=== PATIENT | male | born 1965 | race Caucasian/White ===

== ENCOUNTER 2017-11-09 10:17 | Emergency (ER) | payer BC, OTHER ==
[~2017-11-09] VITALS: Ht 185.4 cm; Wt 97.5 kg
--- OUTSIDE RECORDS SUMMARY | 2017-11-09 10:22 | XMS REPORT | CCD ---
Author Author MARIELA HART Organization Unknown Address [address] [place] [address] Care Team Providers Care Pediatric Hospitalist Name Role Phone JAIMEHENRY RASHARD STEWART Attphys Allergies Allergy Code Allergy Type Reaction Status No Known Drug Allergies 0 Drug allergy Active Active Medications Unknown or Not Available. Problems Unknown or Not Available. Procedures Procedure Code Procedure Type Date Colorectal cancer screening; colonoscopy on individual not meeting criteri G0121 CPT 09/23/2016 Results Unknown or Not Available. Function Status Unknown or Not Available. History of Immunizations Unknown or Not Available. Plan of Treatment Unknown or Not Available. Social History Smoking Status Code Start Date End Date Never smoker [id number] Vital Signs Vital Sign Value Unit Date/Time Recent/Initial? BMI (Body Mass Index) 28.37 kg/m2 09/20/2016 11:03 Initial VS Weight Measured 215 [lb_av] 09/20/2016 11:03 Initial VS Height 73 [in_i] 09/20/2016 11:03 Initial VS BSA (Body Surface Area) 2.24 m2 09/20/2016 11:03 Initial VS Function Status Unknown or Not Available. Goals Unknown or Not Available. ASSESSMENTS Unknown or Not Available. Health Concerns Section Unknown or Not Available.
--- OUTSIDE RECORDS SUMMARY | 2017-11-09 10:23 | XMS REPORT ---
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 Name Role Phone Lizzie Dejesus PCP Unavailable Lizzie Dejesus PreferredProvider Unavailable Allergies and Adverse Reactions Name Reaction Notes NO KNOWN DRUG ALLERGIES Plan of Treatment Planned Activity Comments Planned Date Planned Time Plan/Goal Lipid Profile 10/10/2011 12:00 AM Screening colonoscopy appt on 06/18/16 @330pm Medications Active Name Start Date Estimated Completion Date SIG Comments desoximetasone 0.25 % topical cream 11/30/2014 apply a thin layer to the affected area(s) by topical route 2 times per day ; rub in gently and completely desoximetasone 0.25 % topical cream 10/09/2015 APPLY A THIN LAYER TO THE AFFECTED AREA(S) BY TOPICAL ROUTE 2 TIMES PER DAY ; RUB IN GENTLY AND COMPLETELY Lipitor 40 mg oral tablet 04/01/2016 05/31/2016 take 1 tablet (40 mg) by oral route once daily at bedtime for 30 days phentermine 37.5 mg oral tablet 05/09/2016 take 1 tablet (37.5 mg) by oral route once daily before breakfast Name Start Date Expiration Date SIG Comments diethylpropion 75 mg oral tablet extended release 12/15/2009 01/14/2010 take 1 tablet (75 mg) by oral route once daily , in midmorning for 30 days Zithromax Z-Singh 250 mg oral tablet 03/23/2010 03/28/2010 take 2 tablets (500 mg) by oral route once daily for 1 day then 1 tablet (250 mg) by oral route once daily for 4 days amoxicillin 500 mg oral tablet 03/26/2010 04/05/2010 take 1 tablet (500 mg) by oral route 3 times a day for 10 days Zithromax Z-Singh 250 mg oral tablet 04/30/2010 05/05/2010 take 2 tablets (500 mg ) by oral route once daily for 1 day then 1 tablet (250 mg) by oral route once daily for 4 days Lexapro 10 mg oral tablet 05/22/2010 08/20/2010 take 1 tablet (10 mg) by oral route once daily for 30 days Zithromax Z-Singh 250 mg oral tablet 06/16/2012 06/21/2012 take 2 tablets (500 mg) by oral route once daily for 1 day then 1 tablet (250 mg) by oral route once daily for 4 days Flexeril as directed tablet 10 mg 10/13/2012 11/12/2012 Take 1 tablet by as directed route once a day as directed for 30 days Zithromax Z-Singh 250 mg oral tablet 03/26/2013 03/31/2013 take 2 tablets (500 mg) by oral route once daily for 1 day then 1 tablet (250 mg) by oral route once daily for 4 days Augmentin 875-125 mg oral tablet 05/11/2013 05/18/2013 take 1 tablet by oral route every 12 hours for 7 days Zithromax Z-Singh 250 mg oral tablet 07/29/2014 08/03/2014 take 2 tablets (500 mg ) by oral route once daily for 1 day then 1 tablet (250 mg) by oral route once daily for 4 days Zithromax Z-Singh 250 mg oral tablet 01/30/2015 02/04/2015 take 2 tablets (500 mg) by oral route once daily for 1 day then 1 tablet (250 mg) by oral route once daily for 4 days Discontinued Name Start Date Discontinued Date SIG Comments Ventolin HFA 90 mcg/actuation inhalation HFA aerosol inhaler 03/26/20102011 Inhale 1-2 puff (90 mcg/Actuation) by inhalation route every four to six hours as needed Flexeril 10 mg oral tablet 10/13/2012 10/13/2012 take 1 tablet by mouth daily at HS deleted Nasonex 50 mcg/actuation nasal spray,non-aerosol 03/26/2013 05/11/2013 spray 2 sprays in each nostril by intranasal route once daily promethazine-codeine 6.25-10 mg/5 mL oral syrup 05/11/2013 10/19/2013 take 5 milliliters by oral route every 4-6 hours as needed, not to exceed 30 mL in 24 hours desoximetasone 0.25 % topical cream 10/20/2013 10/06/2014 apply a thin layer to the affected area(s) by topical route 2 times per day ; rub in gently and completely Medrol (Singh) 4 mg oral tablets,dose pack 04/27/2015 03/11/2016 take as directed desoximetasone 0.25 % topical cream 02/28/2016 03/11/2016 APPLY A THIN LAYER TO THE AFFECTED AREA(S) BY TOPICAL ROUTE 2 TIMES PER DAY ; RUB IN GENTLY AND COMPLETELY Problem List Not available. Vital Signs Date Time BP-Sys(mm[Hg] BP-Grecia(mm[Hg]) HR(bpm) RR(rpm) Temp WT HT HC BMI BSA BMI Percentile O2 Sat(%) 05/09/2016 8:18:00 AM 126 mmHg 70 mmHg 93 bpm 18 rpm 96.8 F 218.375 lbs 73 in 28.81 kg/m2 2.26 m2 98 % 04/09/2016 8:01:00 AM 126 mmHg 74 mmHg 99 bpm 18 rpm 97.6 F 227 lbs 73 in 29.9487 kg/m 2.3029 m 97 % 03/11/2016 8:00:00 AM 132 mmHg 74 mmHg 73 bpm 18 rpm 96.8 F 246.5 lbs 73 in 32.52 kg/m2 2.40 m2 98 % 10/06/2014 8:39:00 AM 126 mmHg 64 mmHg 77 bpm 18 rpm 97.1 F 239.375 lbs 73 in 31.5814 kg/m 2.3648 m 97 % 05/11/2013 3:20:00 PM 124 mmHg 68 mmHg 77 bpm 18 rpm 98.7 F 219.25 lbs 73 in 28.93 kg/m2 2.26 m2 96 % 01/25/2013 3:41:00 PM 122 mmHg 66 mmHg 76 bpm 18 rpm 229 lbs 73 in 30.2126 kg/m 2.313 m 97 % 10/13/2012 11:18:00 AM 118 mmHg 62 mmHg 64 bpm 18 rpm 96.4 F 228.25 lbs 73 in 30.11 kg/m2 2.31 m2 04/28/2012 3:45:00 PM 134 mmHg 72 mmHg 68 bpm 18 rpm 97 F 237.375 lbs 73 in 31.3175 kg/m 2.3549 m 10/08/2011 9:30:00 AM 124 mmHg 62 mmHg 64 bpm 18 rpm 97.1 F 225.125 lbs 73 in 29.70 kg/m2 2.29 m2 03/26/2010 9:44:00 AM 112 mmHg 74 mmHg 84 bpm 16 rpm 98 F 220.125 lbs 03/23/2010 10:53:00 AM 126 mmHg 72 mmHg 72 bpm 16 rpm 97.5 F 226.125 lbs 01/16/2010 2:43:00 PM 138 mmHg 80 mmHg 72 bpm 16 rpm 97.2 F 215 lbs 12/15/2009 2:54:00 PM 130 mmHg 78 mmHg 72 bpm 16 rpm 97.8 F 215.5 lbs 11/15/2009 12:04:00 PM 122 mmHg 78 mmHg 64 bpm 16 rpm 97.9 F 221 lbs 06/08/2009 8:10:00 AM 120 mmHg 74 mmHg 64 bpm 16 rpm 97.4 F 211.5 lbs 73 in 27.90 kg/m2 2.22 m2 05/04/2009 8:02:00 AM 112 mmHg 74 mmHg 72 bpm 16 rpm 98.2 F 210.375 lbs 73 in 27.7554 kg/m 2.217 m 04/06/2009 2:13:00 PM 126 mmHg 76 mmHg 68 bpm 16 rpm 97.2 F 212.25 lbs 73 in 28.00 kg/m2 2.23 m2 03/08/2009 11:39:00 AM 120 mmHg 78 mmHg 68 bpm 16 rpm 97.8 F 222.375 lbs 73 in 29.3385 kg/m 2.2793 m 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# [address]-87 Reviewed 04/28/2012 12:00 AM Depo-Medrol, Per [address] [facility]#3562-5033-11 Reviewed 10/14/2012 12:00 AM X-RAY EXAM OF NECK Reviewed 10/22/2012 12:[address] SFT TSUE NCK W/O & W/DYE Reviewed 01/25/2013 12:00 AM THER/PROPH/DIAG INJ SC/IM Reviewed 01/25/2013 12:00 AM Decadron, Per 1 Mg [facility]# [address]-38 Reviewed 01/25/2013 12:00 AM Depo-Medrol, Per 80 Mg NDC#3973-6059-56 Reviewed 05/11/2013 12:00 AM THER/PROPH/DIAG INJ SC/IM Reviewed 05/11/2013 12:00 AM Decadron, Per 1 Mg [facility]# [address]-04 Reviewed 05/11/2013 12:00 AM Depo-Medrol, Per 80 Mg N[facility]#1801-9955-39 Reviewed 10/06/2014 12:00 AM COMPLETE CBC W/AUTO DIFF WBC Reviewed 10/06/2014 12:00 AM ASSAY OF PSA TOTAL Reviewed Results Summary Data and Description Results 10/06/2014 9:10 AM WBC 5.4 RBC 5.15 HGB 15.90 g/dLHCT 45.90 %MCV 89.0 fLMCH 30.90 pgMCHC 34.60 g/dLRDW SD 41 RDW CV 12.70 %MPV 9.60 fLPLT 194 NRBC# 0.00 NRBC% 0.0 %NEUT 51.80 %%LYMP 33.50 %%MONO 8.50 %%EOS 5.30 %%BASO 0.90 %#NEUT 2.81 #LYMP 1.82 #MONO 0.46 #EOS 0.29 #BASO 0.05 MANUAL DIFF NOT IND PSA TOTAL 0.690 ng/mL 03/31/2016 8:05 AM PSA TOTAL 0.550 ng/mLTRIGLYCERIDES 111.0 mg/dLCHOLESTEROL 282.0 mg/dLHDL 44.0 mg/dLTOT CHOL/HDL 6.4 LDL (CALC) 216.0 mg/dLGLUCOSE 93.0 mg/ dLSODIUM 138.0 mmol/LPOTASSIUM 4.60 mmol/LCHLORIDE 104.0 mmol/LCO2 24.0 mmol/ LBUN 19.0 mg/dLCREATININE 1.40 mg/dLSGOT/AST 23.0 IU/LSGPT/ALT 22.0 IU/LALK PHOS 63.0 IU/LTOTAL PROTEIN 7.40 g/dLALBUMIN 4.60 g/dLTOTAL BILI 1.0 mg/ dLCALCIUM 9.80 mg/dLAGE 51 GFR NonAA 53 GFR AA 64 eGFR 53 eGFR AA* >60 WBC 5.7 RBC 5.28 HGB 15.60 g/dLHCT 46.90 %MCV 89.0 fLMCH 29.50 pgMCHC 33.30 g/dLRDW SD 40 RDW CV 12.20 %MPV 9.50 fLPLT 218 NRBC# 0.00 NRBC% 0.0 %NEUT 47.20 %%LYMP 37.50 %%MONO 8.10 %%EOS 5.60 %%BASO 1.40 %#NEUT 2.68 #LYMP 2.13 #MONO 0.46 #EOS 0.32 #BASO 0.08 MANUAL DIFF NOT IND History Of Immunizations Name Date Admin Mfg Name Mfg Code Trade Name Lot# Route Inj Vis Given Vis Pub CVX Influenza 12/26/2015 sanofi pasteur PMC Fluzone Quadrivalent [id number] Intramuscular Left Deltoid 12/26/2015 10/07/2014 141 History of Past Illness Name Date of Onset Comments Weight Loss Mar 08 2009 11:42AM Weight Loss Apr 06 2009 2:15PM Weight Loss May 04 2009 8:04AM Weight Loss Jun 08 2009 8:13AM *No known medical problems Dietary Counseling Nov 15 2009 12:08PM Exercise Counseling Nov 15 2009 12:08PM Weight Gain, Abnormal Nov 15 2009 12:08PM Dietary Counseling Dec 15 2009 2:54PM Exercise Counseling Dec 15 2009 2:54PM Dietary Counseling Jan 16 2010 2:46PM Exercise Counseling Jan 16 2010 2:46PM Pharyngitis, Acute Mar 23 2010 10:53AM Upper Respiratory Infection Mar 26 2010 9:43AM Bronchitis, Acute Mar 26 2010 9:43AM Skin Neoplasm Oct 08 2011 9:32AM Coronary Artery Disease Oct 10 2011 1:30PM Upper Respiratory Infections Apr 28 2012 3:47PM Neck Pain Oct 13 2012 11:20AM Neck Pain Oct 14 2012 2:36PM Lymph Nodes, Enlarged, neck Oct 22 2012 1:44PM Rhinitis, Allergic Jan 25 2013 3:43PM Upper Respiratory Infections May 11 2013 3:22PM Fatigue Oct 06 2014 8:41AM Screening for prostate cancer Oct 06 2014 8:41AM Skin lesion Oct 06 2014 8:41AM General medical examination Oct 06 2014 8:41AM Need for influenza vaccination Dec 26 2015 8:59AM Screening for ischemic heart disease Mar 11 2016 8:02AM Family history of hypertension Mar 11 2016 8:02AM BMI 32.0-32.9,adult Mar 11 2016 8:02AM Other eczema Mar 11 2016 8:02AM Seborrheic keratoses Mar 11 2016 8:02AM Overweight Apr 09 2016 8:02AM Mixed hyperlipidemia Apr 09 2016 8:02AM BMI 28.0-28.9,adult May 09 2016 8:20AM Screening for colon cancer May 09 2016 8:20AM Payers Insurance Name Company Name Plan Name Plan Number Policy Number Policy Group Number Start Date BCBS [facility] [id number] Saturday, 2011 History of Encounters Visit Date Visit Type Provider 05/09/2016 Office visit Lizzie Dejesus APRN 04/09/2016 Office visit Lizzie Dejesus APRN 03/11/2016 Office visit Lizzie Dejesus APRN 12/26/2015 Nurse visit Lizzie Dejesus APRN 10/06/2014 Office visit Lizzie Dejesus APRN 05/11/2013 Office visit Lizzie Dejesus APRN 01/25/2013 Office visit Lizzie Dejesus APRN 10/13/2012 Office visit Lizzie Dejesus APRN 04/28/2012 Office visit Lizzie Dejesus APRN 10/08/2011 Office visit Lizzie Dejesus APRN 03/26/2010 Office visit Jeane TINOCO 03/23/2010 Office visit Jeane TINOCO 01/16/2010 Office visit Jeane TINOCO 12/15/2009 Office visit Jeane TINOCO 11/15/2009 Office visit Jeane TINOCO 06/08/2009 Office visit Jeane TINOCO 05/04/2009 Office visit Jeane TINOCO 04/06/2009 Office visit Jeane TINOCO 03/08/2009 Office visit Jeane TINOCO
--- OUTSIDE RECORDS SUMMARY | 2017-11-09 10:23 | XMS REPORT ---
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 Name Role Phone Lizzie Dejesus PCP Unavailable Allergies and Adverse Reactions Name Reaction Notes NO KNOWN DRUG ALLERGIES Plan of Treatment Planned Activity Comments Planned Date Planned Time Plan/Goal LIPID PANEL 10/10/2011 12:00 AM Medications Active Name Start Date Estimated Completion Date SIG Comments desoximetasone 0.25 % topical cream 11/30/2014 apply a thin layer to the affected area(s) by topical route 2 times per day ; rub in gently and completely Medrol (Singh) 4 mg oral tablets,dose pack 04/27/2015 take as directed Name Start Date Expiration Date SIG Comments [...] day ; rub in gently and completely Problem List Not available. Vital Signs Date Time BP-Sys(mm[Hg] BP-Grecia(mm[Hg]) HR(bpm) RR(rpm) Temp WT HT HC BMI BSA BMI Percentile O2 Sat(%) 10/06/2014 8:39:00 AM 126 mmHg 64 mmHg 77 bpm 18 rpm 97.1 F 239.375 lbs 73 in 31.58 kg/m2 2.36 m2 97 % 05/11/2013 3:20:00 PM 124 mmHg 68 mmHg 77 bpm 18 rpm 98.7 F 219.25 lbs 73 in 28.9263 kg/m 2.2632 m 96 % 01/25/2013 3:41:00 PM 122 mmHg 66 mmHg 76 bpm 18 rpm 229 lbs 73 in 30.21 kg/m2 2.31 m2 97 % 10/13/2012 11:18:00 AM 118 mmHg 62 mmHg 64 bpm 18 rpm 96.4 F 228.25 lbs 73 in 30.1136 kg/m 2.3092 m 04/28/2012 3:45:00 PM 134 mmHg 72 mmHg 68 bpm 18 rpm 97 F 237.375 lbs 73 in 31.32 kg/m2 2.35 m2 10/08/2011 9:30:00 AM 124 mmHg 62 mmHg 64 bpm 18 rpm 97.1 F 225.125 lbs 73 in 29.7014 kg/m 2.2934 m 03/26/2010 9:44:00 AM 112 mmHg 74 mmHg [...] rpm 97.4 F 211.5 lbs 73 in 27.9038 kg/m 2.2229 m 05/04/2009 8:02:00 AM 112 mmHg 74 mmHg 72 bpm 16 rpm 98.2 F 210.375 lbs 73 in 27.76 kg/m2 2.22 m2 04/06/2009 2:13:00 PM 126 mmHg 76 mmHg 68 bpm 16 rpm 97.2 F 212.25 lbs 73 in 28.0027 kg/m 2.2268 m 03/08/2009 11:39:00 AM 120 mmHg 78 mmHg 68 bpm 16 rpm 97.8 F 222.375 lbs 73 in 29.34 kg/m2 2.28 m2 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 Date Ordered Description Order Status 04/28/2012 12:00 AM THER/PROPH/DIAG INJ SC/IM Reviewed 04/28/2012 12:00 AM Decadron, Per 1 Mg [facility]# [address]-69 Reviewed 04/28/2012 12:00 AM Depo-Medrol, Per 80 Mg NDC#9518-4374-42 Reviewed 10/14/2012 12:00 AM X-RAY EXAM OF NECK Returned 10/22/2012 12:[address] SFT TSUE NCK W/O & W/DYE Returned 01/25/2013 12:00 AM THER/PROPH/DIAG INJ SC/IM Reviewed 01/25/2013 12:00 AM Decadron, Per 1 Mg [facility]# [address]-98 Reviewed 01/25/2013 12:00 AM Depo-Medrol, Per 80 Mg NDC#4843-3315-74 Reviewed 05/11/2013 12:00 AM THER/PROPH/DIAG INJ SC/IM Reviewed 05/11/2013 12:00 AM Decadron, Per 1 Mg N[facility]# [address]-67 Reviewed 05/11/2013 12:00 AM Depo-Medrol, Per 80 Mg NDC#5486-1941-14 Reviewed 10/06/2014 12:00 AM COMPLETE CBC W/AUTO DIFF WBC Returned 10/06/2014 12:00 AM ASSAY OF PSA TOTAL Returned Results Summary Data and Description Results 10/06/2014 9:10 AM WBC 5.4 RBC 5.15 HGB 15.90 g/dLHCT 45.90 %MCV 89.0 fLMCH 30.90 pgMCHC 34.60 g/dLRDW CV 12.70 %MPV 9.60 fLPLT 194 %NEUT 51.80 %%LYMP 33.50 %%MONO 8.50 %%EOS 5.30 %%BASO 0.90 %#NEUT 2.81 #LYMP 1.82 #MONO 0.46 #EOS 0.29 #BASO 0.05 PSA TOTAL 0.690 ng/mL History Of Immunizations Not available. History of Past Illness Name Date of [...] General medical examination Oct 06 2014 8:41AM Payers Insurance Name Company Name Plan Name Plan Number Policy Number Policy Group Number [facility] Date [id number] Saturday, 2011 History of Encounters Visit Date Visit Type Provider 10/06/2014 Office visit Lizzie Dejesus SUPERINTENDENT ELECTRIC POWER 05/11/2013 Office visit Lizzie Dejesus SUPERINTENDENT ELECTRIC POWER 01/25/2013 Office visit Lizzie Dejesus SUPERINTENDENT ELECTRIC POWER 10/13/2012 Office visit Lizzie Dejesus SUPERINTENDENT ELECTRIC POWER 04/28/2012 Office visit Lizzie Dejesus SUPERINTENDENT ELECTRIC POWER 10/08/2011 Office visit Lizzie Dejesus SUPERINTENDENT ELECTRIC POWER 03/26/2010 Office visit Jeane TINOCO 03/23/2010 Office visit Jeane TINOCO 01/16/2010 Office visit Jeane TINOCO 12/15/2009 Office visit Jeane TINOCO 11/15/2009 Office visit Jeane TINOCO 06/08/2009 Office visit Jeane TINOCO 05/04/2009 Office visit Jeane TINOCO 04/06/2009 Office visit Jeane TINOCO 03/08/2009 Office visit Jeane TINOCO
--- OUTSIDE RECORDS SUMMARY | 2017-11-09 10:24 | XMS REPORT ---
Author Lizzie Dietrich [facility] Address [address] [place], [place] [address] Care Team Providers Care Manager General Name Role Phone Lizzie Dejesus PCP Unavailable Lizzie Dejesus PreferredProvider Unavailable Allergies and Adverse Reactions Name Reaction Notes NO KNOWN DRUG ALLERGIES Plan of Treatment Planned Activity Comments Planned Date Planned Time Plan/Goal COMPREHENSIVE METABOLIC PANEL 06/04/2016 12:00 AM LIPID PANEL 06/04/2016 12:00 AM Lipid Profile 10/10/2011 12:00 AM Screening colonoscopy appt on 06/18/16 @330pm Pt did want to see him wanting to see Dr park pt has appt on 07/23/16 @ 0930 Medications Active Name Start Date Estimated Completion [...] DAY ; RUB IN GENTLY AND COMPLETELY MegaRed Trimble-3 Krill Oil 1,000-230-60 mg oral capsule take 1 capsule by oral route daily One-A-Day Men's Multivitamin 400-300 mcg oral tablet take 1 tablet by oral route daily aspirin 81 mg oral tablet,delayed release (DR/EC) take 1 tablet (81 mg) by oral route once daily Lipitor 40 mg oral tablet 11/05/2016 take 1 tablet (40 mg) by oral route once daily at bedtime Medrol (Singh) 4 mg oral tablets,dose pack 11/12/2016 take as directed Zyrtec-D 5-120 mg oral tablet extended release 12 hr 11/12/2016 take 1 tablet by oral route 2 times per day phentermine 37.5 mg oral tablet 11/12/2016 12/12/2016 take 1 tablet (37.5 mg ) by oral route once daily before breakfast for 30 days Name Start Date Expiration Date SIG Comments [...] oral route once daily for 4 days Lipitor 40 mg oral tablet 04/01/2016 05/31/2016 take 1 tablet (40 mg) by oral route once daily at bedtime for 30 days phentermine 37.5 mg oral tablet 05/09/2016 take 1 tablet (37.5 mg) by oral route once daily before breakfast Discontinued Name Start Date Discontinued Date SIG [...] DAY ; RUB IN GENTLY AND COMPLETELY Suprep Bowel Prep Kit 17.5-3.13-1.6 gram oral recon soln 07/23/2016 11/12/2016 take as directed Problem List Description Status Onset Colon cancer screening Active 07/25/2016 Vital Signs Date Time BP-Sys(mm[Hg] BP-Grecia(mm[Hg]) HR(bpm) RR(rpm) Temp WT HT HC BMI BSA BMI Percentile O2 Sat(%) 11/12/2016 9:00:00 AM 118 mmHg 80 mmHg 90 bpm 18 rpm 96.6 F 210.125 lbs 73 in 27.72 kg/m2 2.22 m2 97 % 10/14/2016 8:18:00 AM 128 mmHg 70 mmHg 74 bpm 18 rpm 97.8 F 221.5 lbs 73 in 29.2231 kg/m 2.2748 m 98 % 07/23/2016 10:01:00 AM 133 mmHg 90 mmHg 68 bpm 18 rpm 97.3 F 215.5 lbs 73 in 28.43 kg/m2 2.24 m2 05/09/2016 8:18:00 AM 126 mmHg 70 mmHg 93 bpm 18 rpm 96.8 F 218.375 lbs 73 in 28.8108 kg/m 2.2587 m 98 % 04/09/2016 8:01:00 AM 126 mmHg 74 mmHg 99 bpm 18 rpm 97.6 F 227 lbs 73 in 29.95 kg/m2 2.30 m2 97 % 03/11/2016 8:00:00 AM 132 mmHg 74 mmHg 73 bpm 18 rpm 96.8 F 246.5 lbs 73 in 32.5214 kg/m 2.3998 m 98 % 10/06/2014 8:39:00 AM 126 mmHg [...] 2.28 m2 Social History Name Description Comments Tobacco Never smoker Alcohol Use - Occasional 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 Date Ordered Description Order Status 12/26/2015 12:00 AM FLU VACC 4 JOS 3 YRS PLUS IM Reviewed 03/11/2016 12:00 AM COMPLETE CBC W/AUTO DIFF WBC Reviewed 03/11/2016 12:00 AM COMPREHEN METABOLIC PANEL Reviewed 03/11/2016 12:00 AM LIPID PANEL Reviewed 03/11/2016 12:00 AM ASSAY OF PSA TOTAL Reviewed 10/14/2016 12:00 AM LIPID PANEL Returned 04/28/2012 12:00 AM THER/PROPH/DIAG INJ SC/IM Reviewed 04/28/2012 12:00 AM Decadron, Per 1 Mg [facility]# [address]-26 Reviewed 04/28/2012 12:00 AM Depo-Medrol, Per 80 Mg [place]#1254-2285-24 Reviewed 10/14/2012 12:00 AM X-RAY EXAM OF NECK Reviewed 10/22/2012 12:[address] SFT TSUE NCK W/O & W/DYE Reviewed 01/25/2013 12:00 AM THER/PROPH/DIAG INJ SC/IM Reviewed 01/25/2013 12:00 AM Decadron, Per 1 Mg [facility]# [address]-37 Reviewed 01/25/2013 12:00 AM Depo-Medrol, Per 80 Mg [facility]#4101-88[address]-66 Reviewed 05/11/2013 12:00 AM THER/PROPH/DIAG INJ SC/IM Reviewed 05/11/2013 12:00 AM Decadron, Per 1 Mg [facility]# [address]-11 Reviewed 05/11/2013 12:00 AM Depo-Medrol, Per 80 Mg [facility]#1921-5609-96 Reviewed 10/06/2014 12:00 AM COMPLETE CBC W/AUTO DIFF WBC Reviewed 10/06/2014 12:00 AM ASSAY OF PSA TOTAL Reviewed 10/06/2014 12:00 AM General Surgery Consult Reviewed Results Summary Date and Description Results 10/06/2014 9:10 AM WBC [...] Influenza 12/26/2015 sanofi pasteur PMC Fluzone Quadrivalent [id number] Intramuscular Left Deltoid 12/26/2015 10/07/2014 141 History of Past Illness Name Date of Onset Comments Weight Loss Mar 08 2009 11:42AM Weight Loss Apr 06 2009 2:15PM Weight Loss May 04 2009 8:04AM Weight Loss Jun 08 2009 8:13AM Dietary Counseling Nov 15 2009 12:08PM Exercise Counseling Nov 15 2009 12:08PM Weight Gain, Abnormal Nov 15 2009 12:08PM Dietary Counseling Dec 15 2009 2:54PM Exercise Counseling Dec 15 2009 2:54PM Dietary Counseling Jan 16 2010 2:46PM Exercise Counseling Jan 16 2010 2:46PM Pharyngitis, Acute Mar 23 2010 10:53AM Upper Respiratory Infection Mar 26 2010 9:43AM Bronchitis, Acute Mar 26 2010 9:43AM Hyperlipemia, mixed Colon cancer screening 07/25/2016 Skin Neoplasm Oct 08 2011 9:32AM Coronary [...] for colon cancer May 09 2016 8:20AM Hyperlipidemia Jun 04 2016 4:12PM Colon cancer screening Jul 23 2016 10:08AM Colon cancer screening Sep 10 2016 9:58AM Mixed hyperlipidemia Oct 14 2016 8:19AM BMI 29.0-29.9,adult Oct 14 2016 8:19AM Overweight Nov 12 2016 9:04AM Acute seasonal allergic rhinitis due to pollen Nov 12 2016 9:04AM Mixed hyperlipidemia Nov 12 2016 9:04AM Payers Insurance Name Company Name Plan Name Plan Number Policy Number Policy Group Number Start Date BCBS [facility] [id number] Saturday, 2011 History of Encounters Visit Date Visit Type Provider 11/12/2016 Office visit Lizzie Dejesus APRN 10/14/2016 Office visit Lizzie Dejesus APRN 09/23/2016 Surgery [place] DO 07/23/2016 Office visit [place] DO 05/09/2016 Office visit Lizzie Dejesus APRN 04/09/2016 Office visit Lizzie Dejesus APRN 03/11/2016 Office visit Lizzie Dejesus NAIL WELTER 12/26/2015 Nurse visit Lizzie Dejesus APRN 10/06/2014 Office visit Lizzie Dejesus APRN 05/11/2013 Office visit Lizzie Dejesus APRN 01/25/2013 Office visit Lizzie Dejesus APRN 10/13/2012 Office visit Lizzie Dejesus APRN 04/28/2012 Office visit Lizzie Dejesus NAIL WELTER 10/08/2011 Office visit Lizzie Dejesus NAIL WELTER 03/26/2010 Office visit Jeane TNIOCO 03/23/2010 Office visit Jeane TINOCO 01/16/2010 Office visit Jeane TINOCO 12/15/2009 Office visit Jeane TINOCO 11/15/2009 Office visit Jeane TINOCO 06/08/2009 Office visit Jeane TINOCO 05/04/2009 Office visit Jeane TINOCO 04/06/2009 Office visit Jeane TINOCO 03/08/2009 Office visit Jeane TINOCO
--- OUTSIDE RECORDS SUMMARY | 2017-11-09 10:24 | XMS REPORT ---
Author Lizzie Dietrich [facility] Address [address] [place], [place] [address] Care Team Providers Care Delinquency Prevention Officer Name Role Phone Lizzie Dejesus PCP Unavailable Lizzie Dejesus PreferredProvider Unavailable Allergies and Adverse Reactions Name Reaction Notes NO KNOWN DRUG ALLERGIES Plan of Treatment Planned Activity Comments Planned Date Planned Time Plan/Goal Lipid Profile 10/10/2011 12:00 AM Screening colonoscopy Medications Active Name Start Date Estimated Completion [...] AM Decadron, Per 1 Mg [facility]# [address]-23 Reviewed 04/28/2012 12:00 AM Depo-Medrol, Per 80 Mg [facility]#1051-1136-74 Reviewed 10/14/2012 12:00 AM X-RAY EXAM OF NECK Reviewed 10/22/2012 12:[address] SFT TSUE NCK W/O & W/DYE Reviewed 01/25/2013 12:00 AM THER/PROPH/DIAG INJ SC/IM Reviewed 01/25/2013 12:00 AM Decadron, Per 1 Mg NDC# [address]-77 Reviewed 01/25/2013 12:00 AM Depo-Medrol, Per 80 Mg NDC#9146-5433-36 Reviewed 05/11/2013 12:00 AM THER/PROPH/DIAG INJ SC/IM Reviewed 05/11/2013 12:00 AM Decadron, Per 1 Mg NDC# [address]-88 Reviewed 05/11/2013 12:00 AM Depo-Medrol, Per 80 Mg NDC#0488-4243-21 Reviewed 10/06/2014 12:00 AM COMPLETE CBC W/AUTO [...] Influenza 12/26/2015 sanofi pasteur PMC Fluzone Quadrivalent [id number] Intramuscular Left Deltoid 12/26/2015 10/07/2014 141 History [...] Policy Group Number Start Date BCBS Bcbs [facility] [id number] Saturday, 2011 History of Encounters Visit Date [...]
--- OUTSIDE RECORDS SUMMARY | 2017-11-09 10:25 | XMS REPORT ---
Author Lizzie Dietrich [facility] Address [address] [place], [place] [address] Care Team Providers Care Diesel Lube Tech Name Role Phone Lizzie Dejesus PCP Unavailable [...] DAY ; RUB IN GENTLY AND COMPLETELY phentermine 37.5 mg oral tablet 05/09/2016 take [...] once daily at bedtime for 30 days Discontinued Name Start Date Discontinued Date [...] 12:00 AM Decadron, Per 1 Mg NDC# [address]-65 Reviewed 04/28/2012 12:00 AM Depo-Medrol, Per 80 Mg NDC#5906-2427-19 Reviewed 10/14/2012 12:00 AM X-RAY EXAM OF NECK Reviewed 10/22/2012 12:[address] SFT TSUE NCK W/O & W/DYE Reviewed 01/25/2013 12:00 AM THER/PROPH/DIAG INJ SC/IM Reviewed 01/25/2013 12:00 AM Decadron, Per 1 Mg NDC# [address]-70 Reviewed 01/25/2013 12:00 AM Depo-Medrol, Per 80 Mg NDC#2402-8034-06 Reviewed 05/11/2013 12:00 AM THER/PROPH/DIAG INJ SC/IM Reviewed 05/11/2013 12:00 AM Decadron, Per 1 Mg NDC# [address]-56 Reviewed 05/11/2013 12:00 AM Depo-Medrol, Per 80 Mg NDC#3890-3575-72 Reviewed 10/06/2014 12:00 AM COMPLETE CBC W/AUTO [...] Influenza 12/26/2015 sanofi pasteur PMC Fluzone Quadrivalent [id number] Intramuscular Left Deltoid 12/26/2015 10/07/2014 141 History [...] 2016 8:20AM Hyperlipidemia Jun 04 2016 4:12PM Payers Insurance Name Company Name Plan Name Plan Number Policy Number Policy Group Number Start Date BCBS [facility] [id number] Saturday, 2011 History of Encounters Visit Date Visit Type Provider 05/09/2016 Office visit Lizzie Dejesus APRN 04/09/2016 Office visit Lizzie Dejesus APRN 03/11/2016 Office visit Lizzei Dejesus APRN 12/26/2015 Nurse visit Lizzie Dejesus [...]
--- OUTSIDE RECORDS SUMMARY | 2017-11-09 10:25 | XMS REPORT ---
Author Morgan Scott [facility] Address [address] [place], [place] [address] Care Team Providers Care Preventive Maintenance Coordinator Name Role Phone Morgan Park PCP Unavailable Lizzie Dejesus PreferredProvider Unavailable Allergies [...] ; RUB IN GENTLY AND COMPLETELY MegaRed [place]-3 Krill Oil 1,000-230-60 mg oral capsule take 1 capsule by oral route daily One-A-Day Men's Multivitamin 400-300 mcg oral tablet take 1 tablet by oral route daily aspirin 81 mg oral tablet,delayed release (DR/EC) take 1 tablet (81 mg) by oral route once daily Suprep Bowel Prep Kit 17.5-3.13-1.6 gram oral recon soln 07/23/2016 take as directed Name Start Date Expiration [...] RUB IN GENTLY AND COMPLETELY Problem List Description Status Onset Colon cancer screening Active 07/25/2016 Vital Signs Date Time BP-Sys(mm[Hg] BP-[place](mm[Hg]) HR(bpm) RR(rpm) Temp WT HT HC BMI BSA BMI Percentile O2 Sat(%) 07/23/2016 10:01:00 AM 133 mmHg 90 mmHg [...] 12:00 AM ASSAY OF PSA TOTAL Reviewed 04/28/2012 12:00 AM THER/PROPH/DIAG INJ SC/IM Reviewed 04/28/2012 12:00 AM Decadron, Per 1 Mg NDC# [address]-67 Reviewed 04/28/2012 12:00 AM Depo-Medrol, Per 80 Mg NDC#6961-3045-92 Reviewed 10/14/2012 12:00 AM X-RAY EXAM OF NECK Reviewed 10/22/2012 12:[address] SFT TSUE NCK W/O & W/DYE Reviewed 01/25/2013 12:00 AM THER/PROPH/DIAG INJ SC/IM Reviewed 01/25/2013 12:00 AM Decadron, Per 1 Mg NDC# [address]-80 Reviewed 01/25/2013 12:00 AM Depo-Medrol, Per 80 Mg NDC#4858-2543-27 Reviewed 05/11/2013 12:00 AM THER/PROPH/DIAG INJ SC/IM Reviewed 05/11/2013 12:00 AM Decadron, Per 1 Mg NDC# [address]-08 Reviewed 05/11/2013 12:00 AM Depo-Medrol, Per 80 Mg NDC#4716-5940-16 Reviewed 10/06/2014 12:00 AM COMPLETE CBC W/AUTO [...] Influenza 12/26/2015 sanofi pasteur PMC Fluzone Quadrivalent [id number] Intramuscular Left Deltoid 12/26/2015 10/07/2014 141 History [...] Colon cancer screening Sep 10 2016 9:58AM Payers Insurance Name Company Name Plan Name Plan Number Policy Number Policy Group Number [id number] Saturday, 2011 History of Encounters Visit Date Visit Type Provider 07/23/2016 Office visit Morgan Park DO 05/09/2016 Office visit Lizzie Dejesus PEARL DIGGER 04/09/2016 Office visit Lizzie Dejesus PEARL DIGGER 03/11/2016 Office visit Lizzie Dejesus PEARL DIGGER 12/26/2015 Nurse visit Lizzie Oleg PEARL DIGGER 10/06/2014 Office visit Lizzie Oleg PEARL DIGGER 05/11/2013 Office visit Lizzie Oleg PEARL DIGGER 01/25/2013 Office visit Lzizie Oleg PEARL DIGGER 10/13/2012 Office visit Lizzie Oleg PEARL DIGGER 04/28/2012 Office visit Lizzie Oleg PEARL DIGGER 10/08/2011 Office visit Lizzie Oleg PEARL DIGGER 03/26/2010 Office visit Jeane Elias PA 03/23/2010 Office visit Jeane Elias PA 01/16/2010 Office visit Jeane Elias PA 12/15/2009 Office visit Jeane TINOCO 11/15/2009 Office visit Jeane Elias PA 06/08/2009 Office visit Jeane TINOCO 05/04/2009 Office visit Jeane Elias PA 04/06/2009 Office visit Jeane Elias PA 03/08/2009 Office visit Jeane Elias PA
--- OUTSIDE RECORDS SUMMARY | 2017-11-09 10:26 | XMS REPORT ---
Author Lizzie Dietrich [facility] Address [address] [place], [place] [address] Care Team Providers Care Accountant Auditor Name Role Phone Lizzie Dejesus PCP Unavailable Lizzie Dejesus PreferredProvider Unavailable Allergies and Adverse Reactions Name Reaction Notes NO KNOWN DRUG ALLERGIES Plan of Treatment Planned Activity Comments Planned Date Planned Time Plan/Goal Lipid Profile 10/10/2011 12:00 AM Medications Active Name Start [...] AND COMPLETELY phentermine 37.5 mg oral tablet 03/11/2016 take 1 tablet (37.5 mg) by oral route once daily before breakfast Lipitor 40 mg oral tablet 04/01/2016 05/31/2016 take 1 tablet (40 mg) by oral route once daily at bedtime for 30 days Name Start Date Expiration [...] HC BMI BSA BMI Percentile O2 Sat(%) 03/11/2016 8:00:00 AM 132 mmHg 74 mmHg [...] 12:00 AM Decadron, Per 1 Mg NDC# [address]-81 Reviewed 04/28/2012 12:00 AM Depo-Medrol, Per 80 Mg NDC#9102-0174-13 Reviewed 10/14/2012 12:00 AM X-RAY EXAM OF NECK Reviewed 10/22/2012 12:[address] SFT TSUE NCK W/O & W/DYE Reviewed 01/25/2013 12:00 AM THER/PROPH/DIAG INJ SC/IM Reviewed 01/25/2013 12:00 AM Decadron, Per 1 Mg NDC# [address]-87 Reviewed 01/25/2013 12:00 AM Depo-Medrol, Per 80 Mg NDC#4885-8526-36 Reviewed 05/11/2013 12:00 AM THER/PROPH/DIAG INJ SC/IM Reviewed 05/11/2013 12:00 AM Decadron, Per 1 Mg [facility]# [address]-93 Reviewed 05/11/2013 12:00 AM Depo-Medrol, Per 80 Mg [facility]#2964-4236-55 Reviewed 10/06/2014 12:00 AM COMPLETE CBC W/AUTO [...] Influenza 12/26/2015 sanofi pasteur PMC Fluzone Quadrivalent [id number] Intramuscular Left Deltoid 12/26/2015 10/07/2014 141 History [...] 8:02AM Seborrheic keratoses Mar 11 2016 8:02AM Payers Insurance Name Company Name Plan Name Plan Number Policy Number Policy Group Number Start Date BCBS [facility] [place] [id number] Saturday, 2011 History of Encounters Visit Date Visit Type Provider 03/11/2016 Office visit Lizzie Dejesus APRN 12/26/2015 Nurse visit Lizzie Dejesus COMPLIANCE SPEC 10/06/2014 Office visit Lizzie Dejesus APRN 05/11/2013 Office visit Lizzie Dejesus APRN 01/25/2013 Office visit Lizzie Dejesus APRN 10/13/2012 Office visit Lizzie Dejesus APRN 04/28/2012 Office visit Lizzie Dejesus COMPLIANCE SPEC 10/08/2011 Office visit Lizzie Dejesus COMPLIANCE SPEC 03/26/2010 Office visit Jeane TINOCO 03/23/2010 Office visit Jeane TINOCO 01/16/2010 Office visit Jeane TINOCO 12/15/2009 Office visit Jeane TINOCO 11/15/2009 Office visit Jeane TINOCO 06/08/2009 Office visit Jeane TINOCO 05/04/2009 Office visit Jeane TINOCO 04/06/2009 Office visit Jeane TINOCO 03/08/2009 Office visit Jeane TINOCO
--- OUTSIDE RECORDS SUMMARY | 2017-11-09 10:26 | XMS REPORT ---
Author Morgan Scott [facility] Address [address] [place], [place] [phone] Care Team Providers Care Senior Care Specialist Name Role Phone Morgan Park PCP Unavailable [...] ; RUB IN GENTLY AND COMPLETELY MegaRed [place]-3 Krill Oil 1,000-230-60 mg oral capsule take [...] 12:00 AM Decadron, Per 1 Mg NDC# [address]-84 Reviewed 04/28/2012 12:00 AM Depo-Medrol, Per 80 Mg NDC#7798-1584-75 Reviewed 10/14/2012 12:00 AM X-RAY EXAM OF NECK Reviewed 10/22/2012 12:[address] SFT TSUE NCK W/O & W/DYE Reviewed 01/25/2013 12:00 AM THER/PROPH/DIAG INJ SC/IM Reviewed 01/25/2013 12:00 AM Decadron, Per 1 Mg NDC# [address]-09 Reviewed 01/25/2013 12:00 AM Depo-Medrol, Per 80 Mg NDC#7339-3287-73 Reviewed 05/11/2013 12:00 AM THER/PROPH/DIAG INJ SC/IM Reviewed 05/11/2013 12:00 AM Decadron, Per 1 Mg NDC# [address]-80 Reviewed 05/11/2013 12:00 AM Depo-Medrol, Per 80 Mg NDC#0138-5868-07 Reviewed 10/06/2014 12:00 AM COMPLETE CBC W/AUTO [...] Influenza 12/26/2015 sanofi pasteur PMC Fluzone Quadrivalent [id number] Intramuscular Left Deltoid 12/26/2015 10/07/2014 141 History [...] Colon cancer screening Jul 23 2016 10:08AM Payers Insurance Name Company Name Plan Name Plan Number Policy Number Policy Group Number Start Date [facility] [id number] Saturday, 2011 History of Encounters Visit Date Visit Type Provider 07/23/2016 Office visit Morgan Park DO 05/09/2016 Office visit Lizzie Dejesus DIGITAL MEDIA MANAGER 04/09/2016 Office visit Lizzie Dejesus DIGITAL MEDIA MANAGER 03/11/2016 Office visit Lizzie Dejesus DIGITAL MEDIA MANAGER 12/26/2015 Nurse visit Lizzie Oleg DIGITAL MEDIA MANAGER 10/06/2014 Office visit Lizzie Oleg DIGITAL MEDIA MANAGER 05/11/2013 Office visit Lizzie Oleg DIGITAL MEDIA MANAGER 01/25/2013 Office visit Lizzie Oleg DIGITAL MEDIA MANAGER 10/13/2012 Office visit Lizzie Oleg DIGITAL MEDIA MANAGER 04/28/2012 Office visit Lizzie Oleg DIGITAL MEDIA MANAGER 10/08/2011 Office visit Lizzie Oleg DIGITAL MEDIA MANAGER 03/26/2010 Office visit Jeane Elias PA 03/23/2010 Office visit Jeane Elias PA 01/16/2010 Office visit Jeane TINOCO 12/15/2009 Office visit Jeane TINOCO 11/15/2009 Office visit Jeane TINOCO 06/08/2009 Office visit Jeane TINOCO 05/04/2009 Office visit Jeane TINOCO 04/06/2009 Office visit Jeane Elias PA 03/08/2009 Office visit Jeane Elias PA
--- OUTSIDE RECORDS SUMMARY | 2017-11-09 10:27 | XMS REPORT ---
Author Lizzie Dietrich [facility] Address [address] [place], [place] [address] Care Team Providers Care Computing Systems Mechanic Name Role Phone Lizzie Dejesus PCP Unavailable Lizzie Dejesus PreferredProvider Unavailable Allergies and Adverse Reactions Name Reaction Notes NO KNOWN DRUG ALLERGIES Plan of Treatment Planned Activity Comments Planned Date Planned Time Plan/Goal CBC With Auto Differential 03/11/2016 12:00 AM CMP (comprehensive metabolic panel) 03/11/2016 12:00 AM .Lipid Panel 03/11/2016 12:00 AM PSA TOTAL 03/11/2016 12:00 AM Lipid Profile 10/10/2011 12:00 AM Medications Active [...] 4 JOS 3 YRS PLUS IM Reviewed 04/28/2012 12:00 AM THER/PROPH/DIAG INJ SC/IM Reviewed 04/28/2012 12:00 AM Decadron, Per 1 Mg ND# [address]-22 Reviewed 04/28/2012 12:00 AM Depo-Medrol, Per 80 Mg ND#6792-6195-45 Reviewed 10/14/2012 12:00 AM X-RAY EXAM OF NECK Reviewed 10/22/2012 12:[address] SFT TSUE NCK W/O & W/DYE Reviewed 01/25/2013 12:00 AM THER/PROPH/DIAG INJ SC/IM Reviewed 01/25/2013 12:00 AM Decadron, Per 1 Mg NDC# [address]-92 Reviewed 01/25/2013 12:00 AM Depo-Medrol, Per 80 Mg NDC#0558-6193-60 Reviewed 05/11/2013 12:00 AM THER/PROPH/DIAG INJ SC/IM Reviewed 05/11/2013 12:00 AM Decadron, Per [address] [facility]# [address]-42 Reviewed 05/11/2013 12:00 AM Depo-Medrol, Per [address] [facility]#2901-1253-07 Reviewed 10/06/2014 12:00 AM COMPLETE CBC W/AUTO [...] DIFF NOT IND PSA TOTAL 0.690 ng/mL History Of Immunizations Name Date Admin Mfg Name Mfg Code Trade Name Lot# Route Inj Vis Given Vis Pub CVX Influenza 12/26/2015 sanofi pasteur PMC Fluzone Quadrivalent [id number] Intramuscular Left Deltoid 12/26/2015 10/07/2014 141 History [...] Policy Group Number Start Date BCBS Bcbs [facility] [id number] Saturday, 2011 History of Encounters Visit Date [...]
--- OUTSIDE RECORDS SUMMARY | 2017-11-09 10:27 | XMS REPORT ---
Author Morgan Scott [facility] Address [address] [place], [place] [address] Care Team Providers Care Traffic Coordinator Name Role Phone Morgan Park PCP [...] ; RUB IN GENTLY AND COMPLETELY MegaRed [place]-3 Krill Oil 1,000-230-60 mg oral capsule take [...] 12:00 AM Decadron, Per 1 Mg NDC# [address]-06 Reviewed 04/28/2012 12:00 AM Depo-Medrol, Per 80 Mg NDC#4390-3259-50 Reviewed 10/14/2012 12:00 AM X-RAY EXAM OF NECK Reviewed 10/22/2012 12:[address] SFT TSUE NCK W/O & W/DYE Reviewed 01/25/2013 12:00 AM THER/PROPH/DIAG INJ SC/IM Reviewed 01/25/2013 12:00 AM Decadron, Per 1 Mg NDC# [address]-08 Reviewed 01/25/2013 12:00 AM Depo-Medrol, Per 80 Mg NDC#3730-8945-81 Reviewed 05/11/2013 12:00 AM THER/PROPH/DIAG INJ SC/IM Reviewed 05/11/2013 12:00 AM Decadron, Per 1 Mg NDC# [address]-41 Reviewed 05/11/2013 12:00 AM Depo-Medrol, Per 80 Mg NDC#7235-7604-77 Reviewed 10/06/2014 12:00 AM COMPLETE CBC W/AUTO [...] Influenza 12/26/2015 sanofi pasteur PMC Fluzone Quadrivalent [id number] Intramuscular Left Deltoid 12/26/2015 10/07/2014 141 History [...] Policy Number Policy Group Number Start Date [facility] [id number] Saturday, 2011 History of Encounters Visit Date Visit Type Provider 07/23/2016 Office visit Morgan Park DO 05/09/2016 Office visit Lizzie Dejesus ARCADE GAME TECHNICIAN 04/09/2016 Office visit Lizzie Dejesus ARCADE GAME TECHNICIAN 03/11/2016 Office visit Lizzie Dejesus ARCADE GAME TECHNICIAN 12/26/2015 Nurse visit Lizzie Oleg ARCADE GAME TECHNICIAN 10/06/2014 Office visit Lizzie Oleg ARCADE GAME TECHNICIAN 05/11/2013 Office visit Lizzie Oleg ARCADE GAME TECHNICIAN 01/25/2013 Office visit Lizzie Oleg ARCADE GAME TECHNICIAN 10/13/2012 Office visit Lizzie Oleg ARCADE GAME TECHNICIAN 04/28/2012 Office visit Lizzie Oleg ARCADE GAME TECHNICIAN 10/08/2011 Office visit Lizzie Oleg ARCADE GAME TECHNICIAN 03/26/2010 Office visit Jeane Elias PA 03/23/2010 Office visit Jeane Elias PA 01/16/2010 Office visit Jeane TINOCO 12/15/2009 Office visit Jeane TINOCO 11/15/2009 Office visit Jeane TINOCO 06/08/2009 Office visit Jeane TNIOCO 05/04/2009 Office visit Jeane TINOCO 04/06/2009 Office visit Jeane Elias PA 03/08/2009 Office visit Jeane Elias PA
--- OUTSIDE RECORDS SUMMARY | 2017-11-09 10:28 | XMS REPORT ---
Author Lizzie Dietrich [facility] Address [address] [place], [place] [address] Care Team Providers Care Construction Stonemason Name Role Phone Lizzie Dejesus PCP Unavailable [...] 30 days phentermine 37.5 mg oral tablet 04/09/2016 take 1 tablet (37.5 mg) by oral [...] HC BMI BSA BMI Percentile O2 Sat(%) 04/09/2016 8:01:00 AM 126 mmHg 74 mmHg [...] 04/28/2012 12:00 AM Decadron, Per 1 Mg [facility]# [address]-46 Reviewed 04/28/2012 12:00 AM Depo-Medrol, Per 80 Mg [facility]#4924-1550-39 Reviewed 10/14/2012 12:00 AM X-RAY EXAM OF NECK Reviewed 10/22/2012 12:[address] SFT TSUE NCK W/O & W/DYE Reviewed 01/25/2013 12:00 AM THER/PROPH/DIAG INJ SC/IM Reviewed 01/25/2013 12:00 AM Decadron, Per 1 Mg NDC# [address]-55 Reviewed 01/25/2013 12:00 AM Depo-Medrol, Per 80 Mg NDC#3645-7156-69 Reviewed 05/11/2013 12:00 AM THER/PROPH/DIAG INJ SC/IM Reviewed 05/11/2013 12:00 AM Decadron, Per 1 Mg ND# [address]-77 Reviewed 05/11/2013 12:00 AM Depo-Medrol, Per 80 Mg NDC#7803-2039-40 Reviewed 10/06/2014 12:00 AM COMPLETE CBC W/AUTO [...] Influenza 12/26/2015 sanofi pasteur PMC Fluzone Quadrivalent [id number] Intramuscular Left Deltoid 12/26/2015 10/07/2014 141 History [...] 8:02AM Mixed hyperlipidemia Apr 09 2016 8:02AM Payers Insurance Name Company Name Plan Name Plan Number Policy Number Policy Group Number [id number] Saturday, 2011 History of Encounters Visit Date Visit Type Provider 04/09/2016 Office visit Lizzie Dejesus APRN 03/11/2016 Office visit Lizzie Dejesus APRN 12/26/2015 Nurse visit Lizzie Dejesus MACHINIST WOOD 10/06/2014 Office visit Lizzie Dejesus APRN 05/11/2013 Office visit Lizzie Dejesus APRN 01/25/2013 Office visit Lizzie Dejesus APRN 10/13/2012 Office visit Lizzie Dejesus APRN 04/28/2012 Office visit Lizzie Dejesus APRN 10/08/2011 Office visit Lizzie Dejesus MACHINIST WOOD 03/26/2010 Office visit Jeane TINOCO 03/23/2010 Office visit Jeane TINOCO 01/16/2010 Office visit Jeane TINOCO 12/15/2009 Office visit Jeane TINOCO 11/15/2009 Office visit Jeane TINOCO 06/08/2009 Office visit Jeane TINOCO 05/04/2009 Office visit Jeane TINOCO 04/06/2009 Office visit Jeane TINOCO 03/08/2009 Office visit Jeane TINOCO
--- OUTSIDE RECORDS SUMMARY | 2017-11-09 10:28 | XMS REPORT ---
Author Lizzie Dietrich [facility] Address [address] [place], [place] [address] Care Team Providers Care Creative Assistant Name Role Phone Lizzie Dejesus PCP Unavailable [...] 04/28/2012 12:00 AM Decadron, Per 1 Mg [facility]# [address]-01 Reviewed 04/28/2012 12:00 AM Depo-Medrol, Per 80 Mg [facility]#0945-364[address]-65 Reviewed 10/14/2012 12:00 AM X-RAY EXAM OF NECK Reviewed 10/22/2012 12:[address] SFT TSUE NCK W/O & W/DYE Reviewed 01/25/2013 12:00 AM THER/PROPH/DIAG INJ SC/IM Reviewed 01/25/2013 12:00 AM Decadron, Per 1 Mg NDC# [address]-24 Reviewed 01/25/2013 12:00 AM Depo-Medrol, Per 80 Mg NDC#3974-4161-20 Reviewed 05/11/2013 12:00 AM THER/PROPH/DIAG INJ SC/IM Reviewed 05/11/2013 12:00 AM Decadron, Per 1 Mg NDC# [address]-41 Reviewed 05/11/2013 12:00 AM Depo-Medrol, Per 80 Mg NDC#5559-0798-31 Reviewed 10/06/2014 12:00 AM COMPLETE CBC W/AUTO [...] Influenza 12/26/2015 sanofi pasteur PMC Fluzone Quadrivalent [id number] Intramuscular Left Deltoid 12/26/2015 10/07/2014 141 History [...] Policy Group Number Start Date BCBS Bcbs [facility] [id number] Saturday, 2011 History of Encounters Visit Date [...]
--- OUTSIDE RECORDS SUMMARY | 2017-11-09 10:29 | XMS REPORT ---
Author Lizzie Dietrich [facility] Address [address] [place], [place] [address] Care Team Providers Care Perinatal Specialist Name Role Phone Lizzie Dejesus PCP Unavailable [...] ; RUB IN GENTLY AND COMPLETELY MegaRed [place]-3 Krill Oil 1,000-230-60 mg oral capsule take [...] once daily before breakfast for 30 days Zithromax Z-Singh 250 mg oral tablet 11/21/2016 take 2 tablets (500 mg) by oral route once daily for 1 day then 1 tablet (250 mg) by oral route once daily for 4 days Name Start Date Expiration Date SIG [...] TOTAL Reviewed 10/14/2016 12:00 AM LIPID PANEL Reviewed 04/28/2012 12:00 AM THER/PROPH/DIAG INJ SC/IM Reviewed 04/28/2012 12:00 AM Decadron, Per 1 Mg [facility]# [address]-55 Reviewed 04/28/2012 12:00 AM Depo-Medrol, Per 80 Mg [facility]#7627-2776-63 Reviewed 10/14/2012 12:00 AM X-RAY EXAM OF NECK Reviewed 10/22/2012 12:[address] SFT TSUE NCK W/O & W/DYE Reviewed 01/25/2013 12:00 AM THER/PROPH/DIAG INJ SC/IM Reviewed 01/25/2013 12:00 AM Decadron, Per 1 Mg NDC# [address]-32 Reviewed 01/25/2013 12:00 AM Depo-Medrol, Per 80 Mg NDC#2517-2609-47 Reviewed 05/11/2013 12:00 AM THER/PROPH/DIAG INJ SC/IM Reviewed 05/11/2013 12:00 AM Decadron, Per 1 Mg N[facility]# [address]-88 Reviewed 05/11/2013 12:00 AM Depo-Medrol, Per 80 Mg NDC#9763-6159-94 Reviewed 10/06/2014 12:00 AM COMPLETE CBC W/AUTO [...] 0.32 #BASO 0.08 MANUAL DIFF NOT IND 11/05/2016 7:05 AM TRIGLYCERIDES 118.0 mg/dLCHOLESTEROL 249.0 mg/dLHDL 48.0 mg/ dLTOT CHOL/HDL 5.2 LDL (CALC) 177.0 mg/dL History Of Immunizations Name Date Admin Mfg Name Mfg Code Trade Name Lot# Route Inj Vis Given Vis Pub CVX Influenza 12/26/2015 sanofi pasteur PMC Fluzone Quadrivalent [id number] Intramuscular Left Deltoid 12/26/2015 10/07/2014 141 History [...] Policy Number [facility] Group [id number], 2011 History of Encounters Visit Date [...] visit Jeane TINOCO 03/23/2010 Office visit Jeane Elias PA 01/16/2010 Office visit Jeane Elias PA 12/15/2009 Office visit Jeane Elias PA 11/15/2009 Office visit Jeane Elias PA 06/08/2009 Office visit Jeane Elias PA 05/04/2009 Office visit Jeane Elias PA 04/06/2009 Office visit Jeane Elias PA 03/08/2009 Office visit Jeane Elias PA
--- OUTSIDE RECORDS SUMMARY | 2017-11-09 10:29 | XMS REPORT ---
Author Lizzie Dietrich [facility] Address [address] [place], [place] [address] Care Team Providers Care Guide Plant Name Role Phone Lizzie Dejesus PCP Unavailable [...] ; RUB IN GENTLY AND COMPLETELY MegaRed [place]-3 Krill Oil 1,000-230-60 mg oral capsule take 1 capsule by oral route daily One-A-Day Men's Multivitamin 400-300 mcg oral tablet take 1 tablet by oral route daily aspirin 81 mg oral tablet,delayed release (DR/EC) take 1 tablet (81 mg) by oral route once daily Suprep Bowel Prep Kit 17.5-3.13-1.6 gram oral recon soln 07/23/2016 take as directed phentermine 37.5 mg oral tablet 10/14/2016 11/13/2016 take 1 tablet (37.5 mg) by oral route once daily before breakfast for 30 days Lipitor 40 mg oral tablet 11/05/2016 take 1 tablet (40 mg) by oral route once daily at bedtime Name Start Date Expiration Date SIG Comments [...] HC BMI BSA BMI Percentile O2 Sat(%) 10/14/2016 8:18:00 AM 128 mmHg 70 mmHg 74 bpm 18 rpm 97.8 F 221.5 lbs 73 in 29.22 kg/m2 2.27 m2 98 % 07/23/2016 10:01:00 AM 133 mmHg 90 mmHg 68 bpm 18 rpm 97.3 F 215.5 lbs 73 in 28.4315 kg/m 2.2438 m 05/09/2016 8:18:00 AM 126 mmHg 70 mmHg [...] 2.2793 m Social History Name Description Comments Tobacco Never [...] 12:00 AM Decadron, Per 1 Mg NDC# [address]-14 Reviewed 04/28/2012 12:00 AM Depo-Medrol, Per 80 Mg NDC#4388-0869-26 Reviewed 10/14/2012 12:00 AM X-RAY EXAM OF NECK Reviewed 10/22/2012 12:[address] SFT TSUE NCK W/O & W/DYE Reviewed 01/25/2013 12:00 AM THER/PROPH/DIAG INJ SC/IM Reviewed 01/25/2013 12:00 AM Decadron, Per 1 Mg NDC# [address]-39 Reviewed 01/25/2013 12:00 AM Depo-Medrol, Per 80 Mg NDC#0375-1023-64 Reviewed 05/11/2013 12:00 AM THER/PROPH/DIAG INJ SC/IM Reviewed 05/11/2013 12:00 AM Decadron, Per 1 Mg NDC# [address]-43 Reviewed 05/11/2013 12:00 AM Depo-Medrol, Per 80 Mg NDC#6566-5697-91 Reviewed 10/06/2014 12:00 AM COMPLETE CBC W/AUTO [...] Influenza 12/26/2015 sanofi pasteur PMC Fluzone Quadrivalent [id number] Intramuscular Left Deltoid 12/26/2015 10/07/2014 141 History [...] 8:19AM BMI 29.0-29.9,adult Oct 14 2016 8:19AM Payers Insurance Name Company Name Plan Name Plan Number Policy Number Policy Group Number Start Date [employer]BS [employer] [place] [id number] Saturday, 2011 History of Encounters Visit Date Visit Type Provider 10/14/2016 Office visit Lizzie Dejesus APRN 09/23/2016 Surgery Morgan Park DO 07/23/2016 Office visit Morgan Park DO 05/09/2016 Office visit Lizzie Dejesus FAX MACHINE OPERATOR 04/09/2016 Office visit Lizzie Dejesus FAX MACHINE OPERATOR 03/11/2016 Office visit Lizzie Dejesus FAX MACHINE OPERATOR 12/26/2015 Nurse visit Lizzie Dejesus APRN 10/06/2014 Office visit Lizzie Dejesus APRN 05/11/2013 Office visit Lizzie Dejesus APRN 01/25/2013 Office visit Lizzie Dejesus APRN 10/13/2012 Office visit Lizzie Dejesus APRN 04/28/2012 Office visit Lizzie Dejesus FAX MACHINE OPERATOR 10/08/2011 Office visit Lizzie Dejesus FAX MACHINE OPERATOR 03/26/2010 Office visit Jeane TINOCO 03/23/2010 Office visit Jeane TINOCO 01/16/2010 Office visit Jeane TINOCO 12/15/2009 Office visit Jeane TINOCO 11/15/2009 Office visit Jeane TINOCO 06/08/2009 Office visit Jeane TINOCO 05/04/2009 Office visit Jeane TINOCO 04/06/2009 Office visit Jeane TINOCO 03/08/2009 Office visit Jeane TINOCO
--- OUTSIDE RECORDS SUMMARY | 2017-11-09 10:30 | XMS REPORT ---
Author Lizzie Dietrich Organization [facility] Address [address] [place], [place] [address] Care Team Providers Care Floor Covering Printer Name Role Phone Lizzie Dejesus PCP Unavailable Allergies and Adverse Reactions Name Reaction Notes NO KNOWN DRUG ALLERGIES Plan of Treatment Planned Activity Comments Planned Date Planned Time Plan/Goal FLU VACC 4 JOS 3 YRS PLUS IM 12/26/2015 12:00 AM LIPID PANEL 10/10/2011 12:00 AM Medications Active Name Start Date Estimated Completion Date SIG Comments desoximetasone 0.25 % topical cream 11/30/2014 apply a thin layer to the affected area(s) by topical route 2 times per day ; rub in gently and completely Medrol (Singh) 4 mg oral tablets,dose pack 04/27/2015 take as directed desoximetasone 0.25 % topical cream 10/09/2015 APPLY A THIN LAYER TO THE AFFECTED AREA(S) BY TOPICAL ROUTE 2 TIMES PER DAY ; RUB IN GENTLY AND COMPLETELY Name Start Date Expiration Date SIG Comments [...] 12:00 AM Decadron, Per 1 Mg NDC# [address]-66 Reviewed 04/28/2012 12:00 AM Depo-Medrol, Per 80 Mg NDC#0027-1349-61 Reviewed 10/14/2012 12:00 AM X-RAY EXAM OF NECK Returned 10/22/2012 12:[address] SFT TSUE NCK W/O & W/DYE Returned 01/25/2013 12:00 AM THER/PROPH/DIAG INJ SC/IM Reviewed 01/25/2013 12:00 AM Decadron, Per 1 Mg NDC# [address]-96 Reviewed 01/25/2013 12:00 AM Depo-Medrol, Per 80 Mg NDC#3663-2480-23 Reviewed 05/11/2013 12:00 AM THER/PROPH/DIAG INJ SC/IM Reviewed 05/11/2013 12:00 AM Decadron, Per 1 Mg NDC# [address]-36 Reviewed 05/11/2013 12:00 AM Depo-Medrol, Per 80 Mg NDC#4853-3646-65 Reviewed 10/06/2014 12:00 AM COMPLETE CBC W/AUTO [...] for influenza vaccination Dec 26 2015 8:59AM Payers Insurance Name Company Name Plan Name Plan Number Policy Number Policy Group Number Start Date [facility] [id number] Saturday, 2011 History of Encounters Visit Date Visit Type Provider 12/26/2015 Nurse visit Lizzie Dejesus APRN 10/06/2014 [...]
--- OUTSIDE RECORDS SUMMARY | 2017-11-09 10:31 | XMS REPORT ---
Author Lizzie Dietrich [facility] Address [address] [place], [place] [address] Care Team Providers Care Stereotype Caster Name Role Phone Lizzie Dejesus PCP Unavailable [...] ; RUB IN GENTLY AND COMPLETELY MegaRed [place]-3 Krill Oil 1,000-230-60 mg oral capsule take [...] 12:00 AM Decadron, Per 1 Mg NDC# [address]-62 Reviewed 04/28/2012 12:00 AM Depo-Medrol, Per 80 Mg NDC#2848-7485-56 Reviewed 10/14/2012 12:00 AM X-RAY EXAM OF NECK Reviewed 10/22/2012 12:[address] SFT TSUE NCK W/O & W/DYE Reviewed 01/25/2013 12:00 AM THER/PROPH/DIAG INJ SC/IM Reviewed 01/25/2013 12:00 AM Decadron, Per 1 Mg NDC# [address]-81 Reviewed 01/25/2013 12:00 AM Depo-Medrol, Per 80 Mg NDC#0111-6871-01 Reviewed 05/11/2013 12:00 AM THER/PROPH/DIAG INJ SC/IM Reviewed 05/11/2013 12:00 AM Decadron, Per 1 Mg NDC# [address]-38 Reviewed 05/11/2013 12:00 AM Depo-Medrol, Per 80 Mg NDC#4619-6555-05 Reviewed 10/06/2014 12:00 AM COMPLETE CBC W/AUTO [...] Influenza 12/26/2015 sanofi pasteur PMC Fluzone Quadrivalent [id number] Intramuscular Left Deltoid 12/26/2015 10/07/2014 141 History [...] Group Number Start Date [employer]BS [employer] [place] [id number] Saturday, 2011 History of Encounters Visit Date Visit Type Provider 10/14/2016 Office visit Lizzie Dejesus APRN 09/23/2016 Surgery Morgan Park DO 07/23/2016 Office visit Morgan Park DO 05/09/2016 Office visit Lizzie Dejesus BEAN SNIPPER 04/09/2016 Office visit Lizzie Dejesus BEAN SNIPPER 03/11/2016 Office visit Lizzie Dejesus BEAN SNIPPER 12/26/2015 Nurse visit Lizzie Dejesus APRN 10/06/2014 Office visit Lizzie Dejesus APRN 05/11/2013 Office visit Lizzie Dejesus APRN 01/25/2013 Office visit Lizzie Dejesus APRN 10/13/2012 Office visit Lizzie Dejesus APRN 04/28/2012 Office visit Lizzie Dejesus BEAN SNIPPER 10/08/2011 Office visit Lizzie Dejesus BEAN SNIPPER 03/26/2010 Office visit Jeane TINOCO 03/23/2010 Office visit Jeane TINOCO 01/16/2010 Office visit Jeane TINOCO 12/15/2009 Office visit Jeane TINOCO 11/15/2009 Office visit Jeane TINOCO 06/08/2009 Office visit Jeane TINOCO 05/04/2009 Office visit Jeane TINOCO 04/06/2009 Office visit Jeane TINOCO 03/08/2009 Office visit Jeane TINOCO
--- OUTSIDE RECORDS SUMMARY | 2017-11-09 10:32 | XMS REPORT ---
Author Lizzie Dietrich Organization [facility] Address [address] [place], [place] [address] Care Team Providers Care [employer] Principal Name Role Phone Lizzie Dejesus PCP Unavailable [...] day ; rub in gently and completely Name Start Date Expiration Date SIG Comments [...] 12:00 AM Decadron, Per 1 Mg NDC# [address]-33 Reviewed 04/28/2012 12:00 AM Depo-Medrol, Per 80 Mg NDC#6453-7933-41 Reviewed 10/14/2012 12:00 AM X-RAY EXAM OF NECK Returned 10/22/2012 12:[address] SFT TSUE NCK W/O & W/DYE Returned 01/25/2013 12:00 AM THER/PROPH/DIAG INJ SC/IM Reviewed 01/25/2013 12:00 AM Decadron, Per 1 Mg NDC# [address]-35 Reviewed 01/25/2013 12:00 AM Depo-Medrol, Per 80 Mg NDC#2614-0834-30 Reviewed 05/11/2013 12:00 AM THER/PROPH/DIAG INJ SC/IM Reviewed 05/11/2013 12:00 AM Decadron, Per 1 Mg NDC# [address]-12 Reviewed 05/11/2013 12:00 AM Depo-Medrol, Per 80 Mg NDC#9026-8775-49 Reviewed 10/06/2014 12:00 AM COMPLETE CBC W/AUTO [...] Policy Number Policy Group Number Start Date Bcbs Bcbs [facility] [id number] Saturday, 2011 History of Encounters Visit Date Visit Type Provider 10/06/2014 Office visit Lizzie Dejesus APRN 05/11/2013 Office visit Lizzie Dejesus AIRPLANE DISPATCH CLERK 01/25/2013 Office visit Lizzie Dejesus APRN 10/13/2012 Office visit Lizzie Dejesus AIRPLANE DISPATCH CLERK 04/28/2012 Office visit Lizzie Dejesus AIRPLANE DISPATCH CLERK 10/08/2011 Office visit Lizzie Dejesus AIRPLANE DISPATCH CLERK 03/26/2010 Office visit Jeane TINOCO 03/23/2010 Office visit Jeane TINOCO 01/16/2010 Office visit Jeane TINOCO 12/15/2009 Office visit Jeane TINOCO 11/15/2009 Office visit Jeane TINOCO 06/08/2009 Office visit Jeane TINOCO 05/04/2009 Office visit Jeane TINOCO 04/06/2009 Office visit Jeane TINOCO 03/08/2009 Office visit Jeane TINOCO
--- OUTSIDE RECORDS SUMMARY | 2017-11-09 10:33 | XMS REPORT ---
Author Lizzie Dietrich [facility] Address [address] [place], [place] [address] Care Team Providers Care Toll Repairer Central Office Name Role Phone Lizzie Dejesus PCP Unavailable [...] ; RUB IN GENTLY AND COMPLETELY MegaRed [place]-3 Krill Oil 1,000-230-60 mg oral capsule take 1 capsule by oral route daily One-A-Day Men's Multivitamin 400-300 mcg oral tablet take 1 tablet by oral route daily aspirin 81 mg oral tablet,delayed release (DR/EC) take 1 tablet (81 mg) by oral route once daily Lipitor 40 mg oral tablet 11/05/2016 take 1 tablet (40 mg) by oral route once daily at bedtime Zyrtec-D 5-120 mg oral tablet extended release 12 hr 11/12/2016 take 1 tablet by oral route 2 times per day phentermine 37.5 mg oral tablet 12/12/2016 01/11/2017 take 1 tablet (37.5 mg ) by [...] by oral route once daily before breakfast Medrol (Singh) 4 mg oral tablets,dose pack 11/12/2016 take as directed Zithromax Z-Singh 250 mg oral tablet 11/21/2016 [...] HC BMI BSA BMI Percentile O2 Sat(%) 12/12/2016 2:46:00 PM 121 mmHg 72 mmHg 80 bpm 18 rpm 97.4 F 206.5 lbs 73 in 27.24 kg/m2 2.20 m2 97 % 11/12/2016 9:00:00 AM 118 mmHg 80 mmHg 90 bpm 18 rpm 96.6 F 210.125 lbs 73 in 27.7224 kg/m 2.2156 m 97 % 10/14/2016 8:18:00 AM 128 mmHg [...] 04/28/2012 12:00 AM Decadron, Per [address] [facility]# [address]-41 Reviewed 04/28/2012 12:00 AM Depo-Medrol, Per [address] [facility]#6774-2577-55 Reviewed 10/14/2012 12:00 AM X-RAY EXAM OF NECK Reviewed 10/22/2012 12:[address] SFT TSUE NCK W/O & W/DYE Reviewed 01/25/2013 12:00 AM THER/PROPH/DIAG INJ SC/IM Reviewed 01/25/2013 12:00 AM Decadron, Per 1 Mg NDC# [address]-97 Reviewed 01/25/2013 12:00 AM Depo-Medrol, Per 80 Mg NDC#5306-0132-79 Reviewed 05/11/2013 12:00 AM THER/PROPH/DIAG INJ SC/IM Reviewed 05/11/2013 12:00 AM Decadron, Per 1 Mg NDC# [address]-52 Reviewed 05/11/2013 12:00 AM Depo-Medrol, Per 80 Mg NDC#7885-2265-74 Reviewed 10/06/2014 12:00 AM COMPLETE CBC W/AUTO [...] Influenza 12/26/2015 sanofi pasteur PMC Fluzone Quadrivalent [id number] Intramuscular Left Deltoid 12/26/2015 10/07/2014 141 History [...] 9:04AM Mixed hyperlipidemia Nov 12 2016 9:04AM BMI 27.0-27.9,adult Dec 12 2016 2:48PM Mixed hyperlipidemia Dec 12 2016 2:48PM Payers Insurance Name Company Name Plan Name Plan Number Policy Number Policy Group Number Start Date [facility] [id number] Saturday, 2011 History of Encounters Visit Date Visit Type Provider 12/12/2016 Office visit Lizzie Dejesus APRN 11/12/2016 Office visit Lizzie Dejesus APRN 10/14/2016 Office visit Lizzie Dejesus APRN 09/23/2016 Surgery Morgan Park DO 07/23/2016 Office visit Morgan Park DO 05/09/2016 Office visit Lizzie Dejesus APRN 04/09/2016 Office visit Lizzie Dejesus APRN 03/11/2016 Office visit Lizzie Dejesus APRN 12/26/2015 Nurse visit Lizzie Dejesus APRN 10/06/2014 Office visit Lizzie Dejesus PIE CHEF 05/11/2013 Office visit Lizzie Dejesus PIE CHEF 01/25/2013 Office visit Lizzie Dejesus PIE CHEF 10/13/2012 Office visit Lizzie Dejesus PIE CHEF 04/28/2012 Office visit Lizzie Dejesus PIE CHEF 10/08/2011 Office visit Lizzie Dejesus PIE CHEF 03/26/2010 Office visit Jeane Elias PA 03/23/2010 Office visit Jeane Elias PA 01/16/2010 Office visit Jeane Elias PA 12/15/2009 Office visit Jeane TINOCO 11/15/2009 Office visit Jeane Elias PA 06/08/2009 Office visit Jeane Elias PA 05/04/2009 Office visit Jeane Elias PA 04/06/2009 Office visit Jeane Elias PA 03/08/2009 Office visit Jeane Elias PA
--- OUTSIDE RECORDS SUMMARY | 2017-11-09 10:34 | XMS REPORT ---
Author Lizzie Dietrich Organization [facility] Address [address] [place], [place] [address] Care Team Providers Care Assistant Accounting Manager Name Role Phone Lizzie Dejesus PCP Unavailable [...] Start Date Estimated Completion Date SIG Comments MegaRed [place]-3 Krill Oil 1,000-230-60 mg oral capsule take [...] once daily before breakfast for 30 days desoximetasone 0.25 % topical cream 01/07/2017 apply a thin layer to the affected [...] 04/28/2012 12:00 AM Decadron, Per 1 Mg [facility]# [address]-27 Reviewed 04/28/2012 12:00 AM Depo-Medrol, Per 80 Mg [facility]#6831-2978-33 Reviewed 10/14/2012 12:00 AM X-RAY EXAM OF NECK Reviewed 10/22/2012 12:[address] SFT TSUE NCK W/O & W/DYE Reviewed 01/25/2013 12:00 AM THER/PROPH/DIAG INJ SC/IM Reviewed 01/25/2013 12:00 AM Decadron, Per 1 Mg [place]# [address]-93 Reviewed 01/25/2013 12:00 AM Depo-Medrol, Per 80 Mg NDC#8559-9386-47 Reviewed 05/11/2013 12:00 AM THER/PROPH/DIAG INJ SC/IM Reviewed 05/11/2013 12:00 AM Decadron, Per 1 Mg ND# [address]-34 Reviewed 05/11/2013 12:00 AM Depo-Medrol, Per 80 Mg NDC#[address]-17 Reviewed 10/06/2014 12:00 AM COMPLETE CBC W/AUTO [...] Influenza 12/26/2015 sanofi pasteur PMC Fluzone Quadrivalent [id number] Intramuscular Left Deltoid 12/26/2015 10/07/2014 141 History [...] Policy Number Policy Group Number [id number] Saturday, 2011 History of Encounters Visit Date Visit Type Provider 12/12/2016 Office visit Lizzie Dejesus APRN 11/12/2016 Office visit Lizzie Dejesus PRIVATE DUTY LPN 10/14/2016 Office visit Lizzie Dejesus APRN 09/23/2016 [...] Dejesus APRN 04/28/2012 Office visit Lizzie Dejesus PRIVATE DUTY LPN 10/08/2011 Office visit Lizzie Dejesus PRIVATE DUTY LPN 03/26/2010 Office visit Jeane Elias PA 03/23/2010 Office visit Jeane TINOCO 01/16/2010 Office visit Jeane TINOCO 12/15/2009 Office visit Jeane TINOCO 11/15/2009 Office visit Jeane TINOCO 06/08/2009 Office visit Jeane TINOCO 05/04/2009 Office visit Jeane TINOCO 04/06/2009 Office visit Jeane TINOCO 03/08/2009 Office visit Jeane TINOCO
--- OUTSIDE RECORDS SUMMARY | 2017-11-09 10:34 | XMS REPORT ---
Author Author Lizzie Dejesus [facility] Address [address] [place], [place] [address] Care Team Providers Care Construction Project Administrator Name Role Phone Lizzie Dejesus PCP Unavailable Lizzie Dejesus PreferredProvider Unavailable Allergies and Adverse Reactions Name Reaction Notes NO KNOWN DRUG ALLERGIES Plan of Treatment Planned Activity Comments Planned Date Planned Time Plan/Goal COMPREHENSIVE METABOLIC PANEL 06/04/2016 12:00 AM LIPID PANEL 06/04/2016 12:00 AM Lipid Profile 10/10/2011 12:00 AM .Lipid Panel 10/14/2016 12:00 AM Screening colonoscopy appt on 06/18/16 [...] ; RUB IN GENTLY AND COMPLETELY MegaRed [place]-3 Krill Oil 1,000-230-60 mg oral capsule take [...] 12:00 AM Decadron, Per 1 Mg NDC# [address]-56 Reviewed 04/28/2012 12:00 AM Depo-Medrol, Per 80 Mg NDC#9199-1017-49 Reviewed 10/14/2012 12:00 AM X-RAY EXAM OF NECK Reviewed 10/22/2012 12:[address] SFT TSUE NCK W/O & W/DYE Reviewed 01/25/2013 12:00 AM THER/PROPH/DIAG INJ SC/IM Reviewed 01/25/2013 12:00 AM Decadron, Per 1 Mg NDC# [address]-05 Reviewed 01/25/2013 12:00 AM Depo-Medrol, Per 80 Mg NDC#8067-4680-45 Reviewed 05/11/2013 12:00 AM THER/PROPH/DIAG INJ SC/IM Reviewed 05/11/2013 12:00 AM Decadron, Per 1 Mg NDC# [address]-09 Reviewed 05/11/2013 12:00 AM Depo-Medrol, Per 80 Mg NDC#2550-3684-98 Reviewed 10/06/2014 12:00 AM COMPLETE CBC W/AUTO [...] Influenza 12/26/2015 sanofi pasteur PMC Fluzone Quadrivalent [id number] Intramuscular Left Deltoid 12/26/2015 10/07/2014 141 History [...] Policy Number Policy Group Number [facility] [id number] Saturday, 2011 History of Encounters Visit Date Visit Type Provider 10/14/2016 Office visit Lizzie Dejesus DENTAL DIRECTOR 09/23/2016 Surgery Morgan Park DO 07/23/2016 Office visit Morgan Park DO 05/09/2016 Office visit Lizzie Dejesus DENTAL DIRECTOR 04/09/2016 Office visit Lizzie Dejesus DENTAL DIRECTOR 03/11/2016 Office visit Lizzie Dejesus DENTAL DIRECTOR 12/26/2015 Nurse visit Lizzie Dejesus DENTAL DIRECTOR 10/06/2014 Office visit Lizzie Dejesus APRN 05/11/2013 Office visit Lizzie Dejesus DENTAL DIRECTOR 01/25/2013 Office visit Lizzie Dejesus APRN 10/13/2012 Office visit Lizzie Dejesus APRN 04/28/2012 Office visit Lizzie Dejesus DENTAL DIRECTOR 10/08/2011 Office visit Lizzie Dejesus DENTAL DIRECTOR 03/26/2010 Office visit Jeane TINOCO 03/23/2010 Office visit Jeane TINOCO 01/16/2010 Office visit Jeane TINOCO 12/15/2009 Office visit Jeane TINOCO 11/15/2009 Office visit Jeane TINOCO 06/08/2009 Office visit Jeane TINOCO 05/04/2009 Office visit Jeane TINOCO 04/06/2009 Office visit Jeane TINOCO 03/08/2009 Office visit Jeane TINOCO
--- OUTSIDE RECORDS SUMMARY | 2017-11-09 10:35 | XMS REPORT ---
Author Lizzie Dietrich [facility] Address [address] [place], [place] [address] Care Team Providers Care Final Tester Name Role Phone Lizzie Dejesus PCP Unavailable [...] 12:00 AM Decadron, Per 1 Mg NDC# [address]-34 Reviewed 04/28/2012 12:00 AM Depo-Medrol, Per 80 Mg NDC#7859-0300-43 Reviewed 10/14/2012 12:00 AM X-RAY EXAM OF NECK Reviewed 10/22/2012 12:[address] SFT TSUE NCK W/O & W/DYE Reviewed 01/25/2013 12:00 AM THER/PROPH/DIAG INJ SC/IM Reviewed 01/25/2013 12:00 AM Decadron, Per 1 Mg NDC# [address]-41 Reviewed 01/25/2013 12:00 AM Depo-Medrol, Per 80 Mg NDC#3864-8952-41 Reviewed 05/11/2013 12:00 AM THER/PROPH/DIAG INJ SC/IM Reviewed 05/11/2013 12:00 AM Decadron, Per 1 Mg NDC# [address]-01 Reviewed 05/11/2013 12:00 AM Depo-Medrol, Per 80 Mg NDC#9363-2873-31 Reviewed 10/06/2014 12:00 AM COMPLETE CBC W/AUTO [...] Influenza 12/26/2015 sanofi pasteur PMC Fluzone Quadrivalent [id number] Intramuscular Left Deltoid 12/26/2015 10/07/2014 141 History [...] Policy Group Number Start Date BCBS Bcbs [facility] [id number] Saturday, 2011 History of Encounters Visit Date Visit Type Provider 05/09/2016 Office visit Lizzie Dejesus APRN 04/09/2016 Office visit Lizzie Dejesus BOILER MECHANIC 03/11/2016 Office visit Lizzie Dejesus BOILER MECHANIC 12/26/2015 Nurse visit Lizzie Dejesus APRN 10/06/2014 Office visit Lizzie Dejesus APRN 05/11/2013 Office visit Lizzie Dejesus APRN 01/25/2013 Office visit Lizzie Dejesus APRN 10/13/2012 Office visit Lizzie Dejesus BOILER MECHANIC 04/28/2012 Office visit Lizzie Dejesus APRN 10/08/2011 [...]
--- OUTSIDE RECORDS SUMMARY | 2017-11-09 10:35 | XMS REPORT ---
Author Lizzie Dietrich [facility] Address [address] [place], [place] [address] Care Team Providers Care Physician General Internal Medicine Name Role Phone Lizzie Dejesus PCP Unavailable [...] 12:00 AM Decadron, Per 1 Mg NDC# [address]-11 Reviewed 04/28/2012 12:00 AM Depo-Medrol, Per 80 Mg NDC#4447-6664-80 Reviewed 10/14/2012 12:00 AM X-RAY EXAM OF NECK Reviewed 10/22/2012 12:[address] SFT TSUE NCK W/O & W/DYE Reviewed 01/25/2013 12:00 AM THER/PROPH/DIAG INJ SC/IM Reviewed 01/25/2013 12:00 AM Decadron, Per 1 Mg NDC# [address]-98 Reviewed 01/25/2013 12:00 AM Depo-Medrol, Per 80 Mg NDC#2596-8803-32 Reviewed 05/11/2013 12:00 AM THER/PROPH/DIAG INJ SC/IM Reviewed 05/11/2013 12:00 AM Decadron, Per 1 Mg NDC# [address]-60 Reviewed 05/11/2013 12:00 AM Depo-Medrol, Per 80 Mg NDC#0304-1209-83 Reviewed 10/06/2014 12:00 AM COMPLETE CBC W/AUTO [...] Influenza 12/26/2015 sanofi pasteur PMC Fluzone Quadrivalent [id number] Intramuscular Left Deltoid 12/26/2015 10/07/2014 141 History [...] Policy Group Number Start Date BCBS Bcbs [facility] [id number] Saturday, 2011 History of Encounters Visit Date [...]
--- OUTSIDE RECORDS SUMMARY | 2017-11-09 10:35 | XMS REPORT | Continuity of Care Document ---
Author Author [facility] Organization [facility] Address Unknown Phone Unavailable Allergies Active Description Code Type Severity Reaction Onset Reported/Identified Relationship to Patient Clinical Status Yes No Known Drug Allergies [id number] N/A N/A Medications There is no data. Problems There is no data. Procedures There is no data. Results There is no data. Encounters ACCT No. Visit Date/Time Discharge Status Pt. Type Provider Facility Loc./Unit Complaint [id number] 12/12/2016 15:44:03 12/12/2016 23:59:59 CLS Outpatient WalkerLizzie [id number] 11/12/2016 09:41:20 11/12/2016 23:59:59 CLS Outpatient Walker, Lizzie [id number] 10/14/2016 09:09:41 10/14/2016 23:59:59 CLS Outpatient Walker, Lizzie [id number] 09/24/2016 15:44:41 09/24/2016 23:59:59 CLS Outpatient Morgan Choi [id number] 07/23/2016 10:11:29 07/23/2016 23:59:59 CLS Outpatient Morgan Choi [id number] 05/09/2016 18:34:49 05/09/2016 23:59:59 CLS Outpatient Walker, Lizzie [id number] 04/09/2016 08:56:21 04/09/2016 23:59:59 CLS Outpatient Walker, Lizzie [id number] 03/11/2016 08:54:37 03/11/2016 23:59:59 CLS Outpatient Walker, Lizzie [id number] 12/26/2015 08:56:19 12/26/2015 23:59:59 CLS Outpatient Walker, Lizzie [id number] 10/10/2014 22:32:28 10/10/2014 23:59:59 CLS Outpatient Walker, Lizzie [id number] 05/11/2013 16:15:14 05/11/2013 23:59:59 CLS Outpatient Walker, Lizzie [id number] 11/05/2016 06:53:35 Document Registration
--- NOTE | 2017-11-09 11:43 | ED Abdominal Pain ---
General Chief Complaint: Abdominal/GI Problems Stated Complaint: LOWER ABD PAIN FOR 2 DAYS Nursing Triage Note: Low abd pain. Sepsis Screen: No Definite Risk Source of Information: Patient Exam Limitations: No Limitations History of Present Illness Date Seen by Provider: Nov 09, 2017 Time Seen by Provider: 11:41 Initial Comments Patient is a 52-year-old male who presents to the emergency room with complaints of periumbilical and right lower abdominal pain the past 4 days. He reports that he is having mild nausea with the pain but denies vomiting, constipation, and diarrhea. Timing/Duration: 4-5 Days Severity/Quality: Sharp Location: RLQ, Periumbilical Radiation: RLQ, Periumbilical Associated Symptoms: Nausea/Vomiting Allergies and Home Medications Allergies Coded Allergies: No Known Drug Allergies (Unverified , 11/09/17) Home Medications Atorvastatin Calcium 20 Mg Tablet, 20 MG PO DAILY, (Reported) Hydrocodone Bit/Acetaminophen 1 Tab Tab, 1 EACH PO Q6H PRN for PAIN Prescribed by: CARINA VEGA on 11/09/17 1303 Ondansetron 4 Mg Tab.rapdis, 4 MG SL Q4H PRN for NAUSEA/VOMITING-1ST LINE Prescribed by: CARINA VEGA on 11/09/17 1303 Phentermine HCl 30 Mg Capsule, 30 MG PO DAILY, (Reported) Patient Home Medication List Home Medication List Reviewed: Yes Review of Systems Review of Systems Constitutional: see HPI; No chills, No fever Gastrointestinal: See HPI, Abdominal Pain, Nausea All Other Systems Reviewed Negative Unless Noted: Yes Past Dclkhps-Jdxsmu-Smnmrf Hx Past Med/Social Hx: Reviewed Nursing Past Med/Soc Hx Patient Social History Recent Foreign Travel: No Contact w/Someone Who Travel: No Recent Infectious Disease Expo: No Family Medical History Reviewed Nursing Family Hx Physical Exam Vital Signs Vital Signs - First Documented 11/09/17 11/09/17 11:03 13:35 Temp 97.5 Pulse 79 Resp 16 B/P (MAP) 179/97 (124) Pulse Ox 98 O2 Delivery Room Air Capillary Refill : Less Than 3 Seconds Height/Weight/BMI Height: 6'1.00" Weight: 215lbs. oz. 97.403651ui; BMI Method:Stated General Appearance: WD/WN, no apparent distress Respiratory: chest non-tender, lungs clear, normal breath sounds, no respiratory distress, no accessory muscle use Cardiovascular: normal peripheral pulses, regular rate, rhythm, no edema, no gallop, no JVD, no murmur Gastrointestinal: normal bowel sounds, soft, no organomegaly, no pulsatile mass , tenderness (RLQ ) Extremities: normal range of motion, non-tender, normal inspection, no pedal edema, no calf tenderness Neurologic/Psychiatric: alert, normal mood/affect, oriented x 3 Progress/Results/Core Measures Results/Orders Lab Results Laboratory Tests Test 11/09/17 11:45 11/09/17 12:05 Range/Units White Blood Count 6.5 4.3-11.0 10^3/uL Red Blood Count 5.21 4.35-5.85 10^6/uL Hemoglobin 16.1 13.3-17.7 G/DL Hematocrit 46 40-54 % Mean Corpuscular Volume 88 80-99 FL Mean Corpuscular Hemoglobin 31 25-34 PG Mean Corpuscular Hemoglobin Concent 35 32-36 G/DL Red Cell Distribution Width 12.7 10.0-14.5 % Platelet Count 240 130-400 10^3/uL Mean Platelet Volume 9.2 7.4-10.4 FL Neutrophils (%) (Auto) 57 42-75 % Lymphocytes (%) (Auto) 30 12-44 % Monocytes (%) (Auto) 8 0-12 % Eosinophils (%) (Auto) 5 0-10 % Basophils (%) (Auto) 1 0-10 % Neutrophils # (Auto) 3.7 1.8-7.8 X 10^3 Lymphocytes # (Auto) 1.9 1.0-4.0 X 10^3 Monocytes # (Auto) 0.5 0.0-1.0 X 10^3 Eosinophils # (Auto) 0.3 0.0-0.3 10^3/uL Basophils # (Auto) 0.0 0.0-0.1 10^3/uL Sodium Level 139 135-145 MMOL/L Potassium Level 4.3 3.6-5.0 MMOL/L Chloride Level 103 98-107 MMOL/L Carbon Dioxide Level 24 21-32 MMOL/L Anion Gap 12 5-14 MMOL/L Blood Urea Nitrogen 13 7-18 MG/DL Creatinine 1.24 0.60-1.30 MG/DL Estimat Glomerular Filtration Rate > 60 BUN/Creatinine Ratio 10 Glucose Level 98 70-105 MG/DL Calcium Level 10.1 8.5-10.1 MG/DL Corrected Calcium 8.5-10.1 MG/DL Total Bilirubin 1.5 H 0.1-1.0 MG/DL Aspartate Amino Transf (AST/SGOT) 21 5-34 U/L Alanine Aminotransferase (ALT/SGPT) 24 0-55 U/L Alkaline Phosphatase 71 40-136 U/L Total Protein 7.5 6.4-8.2 GM/DL Albumin 4.8 H 3.2-4.5 GM/DL Amylase Level 58 25-125 U/L Lipase 34 8-78 U/L Urine Color YELLOW Urine Clarity CLEAR Urine pH 7 5-9 Urine Specific [place] 1.005 L 1.016-1.022 Urine Protein NEGATIVE NEGATIVE Urine Glucose (UA) NEGATIVE NEGATIVE Urine Ketones NEGATIVE NEGATIVE Urine Nitrite NEGATIVE NEGATIVE Urine Bilirubin NEGATIVE NEGATIVE Urine Urobilinogen NORMAL NORMAL MG/DL Urine Leukocyte Esterase NEGATIVE NEGATIVE Urine RBC (Auto) NEGATIVE NEGATIVE Urine RBC NONE /HPF Urine WBC NONE /HPF Urine Squamous Epithelial Cells NONE /HPF Urine Crystals NONE /LPF Urine Bacteria NEGATIVE /HPF Urine Casts NONE /LPF Urine Mucus NEGATIVE /LPF Urine Culture Indicated NO My Orders Orders - CARINA VEGA Comprehensive Metabolic Panel (11/09/17 11:40) Lipase (11/09/17 11:40) Amylase (11/09/17 11:40) Saline Lock/Iv-Start (11/09/17 11:40) Cbc With Automated Diff (11/09/17 11:40) Ct Abdomen/Pelvis W (11/09/17 11:40) Fentanyl Injection (Sublimaze Injection (11/09/17 12:00) Iohexol Injection (Omnipaque 350 Mg/Ml 1 (11/09/17 12:30) Ns (Ivpb) (Sodium Chloride 0.9%) (11/09/17 12:30) Iv Push Offshore Diver Ed (11/09/17 ) Medications Given in ED Vital Signs/I&O 11/09/17 11/09/17 11:03 13:35 Temp 97.5 97.0 Pulse 79 Resp 16 B/P (MAP) 179/97 (124) 132/109 Pulse Ox 98 98 O2 Delivery Room Air Blood Pressure Mean: 124 Progress Progress Note : Time: 13:00 Progress Note I have seen and evaluated the patient. I have informed him of imaging studies and the importance of follow up on findings. He agrees with plan of care. Return precautions were given. Diagnostic Imaging Diagonstic Imaging: CT Plain Films/CT/US/NM/MRI: abdomen Comments NAME: ANTOINE REINA [facility] REC#: [id number] PHYSICIAN: CARINA VEGA CC: CARINA VEGA; SIRIA DAVENPORT MD Page 2 of 2 RADIOLOGY REPORT VIA [place], [place] CC: CARINA VEGA; SIRIA DAVENPORT MD Page 1 of 1 RADIOLOGY REPORT NAME: ANTOINE REINA [facility] REC#: [id number] PT STATUS: REG ER : 1965 PHYSICIAN: CARINA VEGA ADMIT DATE: 11/09/17/ER Signed Date of Exam: 11/09/17 CT ABDOMEN/PELVIS W PROCEDURE: CT abdomen and pelvis with contrast. TECHNIQUE: Multiple contiguous axial images were obtained through the abdomen and pelvis after administration of intravenous contrast. INDICATION: Right lower quadrant pain. FINDINGS: Lung bases are clear. Liver appears normal. Gallbladder and bile ducts are normal. The pancreas and spleen are normal. The adrenal glands normal. The kidneys are normal. There is normal enhancement of the abdominal organs and vessels following IV contrast. Aorta appears normal. Stomach and small bowel are not distended. There is no bowel wall thickening. The terminal ileum appears normal. The appendix is visualized and normal. There are some lymph nodes in the right lower quadrant measuring less than 1 cm. There is no evidence of constipation. There are diverticula in the sigmoid colon without diverticulitis. Bladder appears normal. No pelvic masses. No free air or free fluid. There is a bladder calculus present measuring approximately 1.5 cm. This may be within a bladder diverticulum. This is posterior and right of midline. No evidence of ventral hernia. No bony lesion. IMPRESSION: 1. No evidence of appendicitis. No acute inflammatory changes noted in the abdomen. 2. There are a few lymph nodes in the right lower quadrant representing mild mesenteric adenitis. There does not appear to be significant mesenteric edema associated with these. 3. Bladder diverticulum measuring approximately 2 cm posterior on the right which may be within a diverticulum. 4. Diverticulosis of the sigmoid colon without evidence of diverticulitis. Dictated by: Dictated on workstation # [id number] Dict: 11/09/17 1241 Trans: 11/09/17 1257 Interpreted by: SIRIA DAVENPORT MD Electronically signed by: SIRIA DAVENPORT MD 11/09/17 1257 Reviewed: Reviewed by Me Departure Impression Primary Impression: Mesenteric adenitis Additional Impression: Bladder diverticulum Disposition: HOME, SELF-CARE Condition: Stable/Unchanged Departure-Patient Inst. Decision time for Depature: 13:01 Referrals: CARLIN ARECHIGA MD,JENISE Anand MD (PCP) Primary Care Physician Patient Instructions: Acute Abdomen (Belly Pain), Adult (DC) Add. Discharge Instructions: Take medication as directed. Follow-up with Dr. Matias within 1 week for recheck to discuss the CT findings. Follow up with Dr. Arechiga in 1 week to evaluated the bladder diverticulum. Return back to the emergency room for any worsening symptoms or concerns as needed. All discharge instructions reviewed with patient and/or family. Voiced understanding. Scripts Ondansetron (Zofran Odt) 4 Mg Tab.rapdis 4 MG SL Q4H PRN for NAUSEA/VOMITING-1ST LINE, #14 TAB Prov: CARINA VEGA 11/09/17 Hydrocodone Bit/Acetaminophen (Hydrocodone/Acetaminophen 5/325mg Tablet) 1 Tab Tab 1 EACH PO Q6H PRN for PAIN, #14 TAB Prov: CARINA VEGA 11/09/17 CARINA VEGA Nov 09, 2017 11:43
[2017-11-09] MEDS ORDERED: PHEN30CA2 PO (11:51)
[2017-11-09] MEDS ORDERED: ATOR20TA66 PO (11:52)
[2017-11-09 11:54] LABS: BASOPHILS % (AUTO) 1 % (0-10); EOSINOPHILS # (AUTO) 0.3 10^3/uL (0.0-0.3); EOSINOPHILS % (AUTO) 5 % (0-10); HEMATOCRIT 46 % (40-54); HEMOGLOBIN 16.1 G/DL (13.3-17.7); LYMPHOCYTES # (AUTO) 1.9 X 10^3 (1.0-4.0); LYMPHOCYTES % (AUTO) 30 % (12-44); MEAN CORPUSCULAR HEMOGLOBIN 31 PG (25-34); MEAN CORPUSCULAR HGB CONC 35 G/DL (32-36); MEAN CORPUSCULAR VOLUME 88 FL (80-99); MEAN PLATELET VOLUME 9.2 FL (7.4-10.4); MONOCYTES # (AUTO) 0.5 X 10^3 (0.0-1.0); MONOCYTES % (AUTO) 8 % (0-12); NEUTROPHILS # (AUTO) 3.7 X 10^3 (1.8-7.8); NEUTROPHILS % (AUTO) 57 % (42-75); PLATELET COUNT 240 10^3/uL (130-400); RED BLOOD COUNT 5.21 10^6/uL (4.35-5.85); RED CELL DISTRIBUTION WIDTH 12.7 % (10.0-14.5); WHITE BLOOD COUNT 6.5 10^3/uL (4.3-11.0)
[2017-11-09] MEDS ORDERED: fentaNYL INJECTION 100 MCG/2 ML AMP IVP ONE (12:00)
[2017-11-09 12:12] LABS: ALANINE AMINOTRANSFERASE 24 U/L (0-55); ALBUMIN 4.8 GM/DL (3.2-4.5); ALKALINE PHOSPHATASE 71 U/L (40-136); AMYLASE 58 U/L (25-125); BILIRUBIN,TOTAL 1.5 MG/DL (0.1-1.0); BUN/CREATININE RATIO 10; CALCIUM 10.1 MG/DL (8.5-10.1); CARBON DIOXIDE 24 MMOL/L (21-32); CHLORIDE 103 MMOL/L (98-107); CREATININE SERUM 1.24 MG/DL (0.60-1.30); GFR ESTIMATED > 60; GLUCOSE 98 MG/DL (70-105); LIPASE 34 U/L (8-78); POTASSIUM 4.3 MMOL/L (3.6-5.0); SODIUM 139 MMOL/L (135-145); TOTAL PROTEIN 7.5 GM/DL (6.4-8.2)
[2017-11-09 12:12] LABS: BILIRUBIN,URINE NEGATIVE (NEGATIVE); CLARITY,URINE CLEAR; COLOR,URINE YELLOW; GLUCOSE, URINE (UA) NEGATIVE (NEGATIVE); KETONES,URINE NEGATIVE (NEGATIVE); LEUKOCYTE ESTERASE ,URINE NEGATIVE (NEGATIVE); NITRITE,URINE NEGATIVE (NEGATIVE); PH,URINE 7 (5-9); PROTEIN,URINE NEGATIVE (NEGATIVE); UROBILINOGEN,URINE NORMAL (NORMAL)
[2017-11-09] MEDS ORDERED: NS 250 ML (IVPB) BAG IV ONE (12:30)
[2017-11-09] MEDS ORDERED: IOHEXOL 350 MG/ML 100 ML (OMNIPAQUE 350) VIAL IV ONE (12:30)
[2017-11-09 12:33] LABS: BACTERIA,URINE NEGATIVE /HPF
--- NOTE | 2017-11-09 12:50 | Diagnostic Imaging Report ---
PROCEDURE: CT abdomen and pelvis with contrast. TECHNIQUE: Multiple contiguous axial images were obtained through the abdomen and pelvis after administration of intravenous contrast. INDICATION: Right lower quadrant pain. FINDINGS: Lung bases are clear. Liver appears normal. Gallbladder and bile ducts are normal. The pancreas and spleen are normal. The adrenal glands normal. The kidneys are normal. There is normal enhancement of the abdominal organs and vessels following IV contrast. Aorta appears normal. Stomach and small bowel are not distended. There is no bowel wall thickening. The terminal ileum appears normal. The appendix is visualized and normal. There are some lymph nodes in the right lower quadrant measuring less than 1 cm. There is no evidence of constipation. There are diverticula in the sigmoid colon without diverticulitis. Bladder appears normal. No pelvic masses. No free air or free fluid. There is a bladder calculus present measuring approximately 1.5 cm. This may be within a bladder diverticulum. This is posterior and right of midline. No evidence of ventral hernia. No bony lesion. IMPRESSION: 1. No evidence of appendicitis. No acute inflammatory changes noted in the abdomen. 2. There are a few lymph nodes in the right lower quadrant representing mild mesenteric adenitis. There does not appear to be significant mesenteric edema associated with these. 3. Bladder diverticulum measuring approximately 2 cm posterior on the right which may be within a diverticulum. 4. Diverticulosis of the sigmoid colon without evidence of diverticulitis. Dictated by: Dictated on workstation # [id number]
[2017-11-09] MEDS ORDERED: ONDA4TAB8 SL (13:03)
[2017-11-09] MEDS ORDERED: ACHD5005 PO (13:03)
[2017-11-09 13:35] VITALS: BP 132/109
== END 2017-11-09 13:37 | disposition home or self-care (01) ==
LOC: ER 10:19
DX: I88.0 Nonspecific mesenteric lymphadenitis (principal); N32.3 Diverticulum of bladder
CPT/HCPCS: 36415; 74177; 80053; 81000; 82150; 83690; 85025; 96374